=== PATIENT | female | born 1990 | race Caucasian/White ===

== ENCOUNTER → 2018-03-03 14:58 | Outpatient (CLI) | payer OTHER, SELFPAY ==
[2018-03-03 21:21] LABS: Chlamydia Trachomatis by PCR Negative (Negative); Neisserai gonorrhoeae by PCR Negative (Negative); Probe Check PASS; Sample Adequacy Control PASS; Specimen Processing Control PASS
[2018-03-08 11:04] LABS: HPV Reflexed? NOT INDICATED
== END ==
PROVIDERS: Visit Provider Obstetrics & Gynecology
DX: Z12.4 Encounter for screening for malignant neoplasm of cervix (principal); Z34.90 Encounter for supervision of normal pregnancy, unspecified, unspecified trimester
CPT/HCPCS: 87086; 87491; 87591; 88175; G0145

== ENCOUNTER → 2018-04-04 13:41 | Outpatient (CLI) | payer OTHER, SELFPAY ==
[2018-04-04 14:33] LABS: Absolute Lymphocyte Count 1.63 X10^3/ul (0.83-4.51); Absolute Neutrophil Count 5.5 X10^3/uL (2.0-7.7); Basophil# 0.01 X10^3/uL; Basophil% 0.1 % (0-1); Eosinophil# 0.05 X10^3/uL; Eosinophils% 0.7 % (0-5); Hematocrit 37.2 % (37-47); Lymphocyte # 1.63 X10^3/ul (4.0); Lymphocyte % 21.4 % (19-41); Mean Corp Hgb Conc 34.9 g/gl (32-36); Mean Corpuscular Hgb 29.9 pg (27.0-32.0); Mean Corpuscular Volume 85.5 fL (81-99); Mean Platelet Vol. 9.7 fl (6.2-12.0); Monocyte# 0.44 X10^3/uL; Monocyte% 5.8 % (0-10); Neutrophil # 5.47 X10^3/uL (2.7-7.7); Neutrophil % 71.9 % (47-70); Platelet Count 169 K/mm3 (150-450); RBC Distribution Width CV 12.8 % (11.6-14.6); RBC Distribution Width SD 40.4 fl (35.1-43.9); Red Blood Count 4.35 M/mm3 (4.2-5.4); White Blood Count 7.6 K/mm3 (4.4-11.0)
[2018-04-04 14:34] LABS: POSITIVE COUNT NO; POSITIVE DIFFERENTIAL NO; POSITIVE MORPHOLOGY NO
[2018-04-04 14:54] LABS: Free T3 2.8 pg/mL (2.18-3.98); T4 Free Direct 1.24 ng/dL (0.76-1.46); Thyroid Stim Hormone (TSH) 0.69 uIU/mL (0.358-3.74)
[2018-04-04 15:32] LABS: HIV - WCH Non-Reactive (Nonreactive); Rubella IgG 77.4 IU/mL
[2018-04-05 13:36] LABS: HEPATITIS B SURFACE AG Negative (Negative)
[2018-04-07 05:27] LABS: Rapid Plasmin Reagin (RPR) NONREACTIVE (NONREACTIVE)
== END ==
LOC: LAB 13:43
PROVIDERS: Family Provider Student in an Organized Health Care Education/Training Program; PCP Student in an Organized Health Care Education/Training Program; Referring Provider Obstetrics & Gynecology; Visit Provider Obstetrics & Gynecology
DX: O99.280 Endocrine, nutritional and metabolic diseases complicating pregnancy, unspecified trimester (principal); E03.9 Hypothyroidism, unspecified; Z3A.00 Weeks of gestation of pregnancy not specified
CPT/HCPCS: 36415; 84439; 84443; 84481; 85025; 86592; 86703; 86762; 86850; 86900; 87340

== ENCOUNTER → 2018-07-17 09:25 | Outpatient (CLI) | payer OTHER, SELFPAY ==
[2018-06-27 13:07] VITALS: BMI 29.2
[2018-07-17 10:16] LABS: Absolute Lymphocyte Count 1.46 X10^3/ul (0.83-4.51); Absolute Neutrophil Count 6.1 X10^3/uL (2.0-7.7); Basophil# 0.01 X10^3/uL; Basophil% 0.1 % (0-1); Eosinophil# 0.07 X10^3/uL; Eosinophils% 0.8 % (0-5); Hematocrit 33.7 % (37-47); Hemoglobin 11.1 g/dl (12.0-15.0); Lymphocyte # 1.46 X10^3/ul (4.0); Lymphocyte % 17.6 % (19-41); Mean Corp Hgb Conc 32.9 g/gl (32-36); Mean Corpuscular Hgb 28.2 pg (27.0-32.0); Mean Corpuscular Volume 85.5 fL (81-99); Mean Platelet Vol. 9.7 fl (6.2-12.0); Monocyte# 0.54 X10^3/uL; Monocyte% 6.5 % (0-10); Neutrophil # 6.13 X10^3/uL (2.7-7.7); Platelet Count 197 K/mm3 (150-450); RBC Distribution Width CV 13.4 % (11.6-14.6); RBC Distribution Width SD 41.3 fl (35.1-43.9); Red Blood Count 3.94 M/mm3 (4.2-5.4); White Blood Count 8.3 K/mm3 (4.4-11.0)
[2018-07-17 10:18] LABS: POSITIVE COUNT NO; POSITIVE DIFFERENTIAL NO; POSITIVE MORPHOLOGY NO
[2018-07-17 10:55] LABS: Glucose Challenge Gest 1H 50g 105 mg/dL (70-140)
== END ==
PROVIDERS: Family Provider Student in an Organized Health Care Education/Training Program; PCP Student in an Organized Health Care Education/Training Program; Referring Provider Obstetrics & Gynecology; Visit Provider Obstetrics & Gynecology
DX: Z34.90 Encounter for supervision of normal pregnancy, unspecified, unspecified trimester (principal)
CPT/HCPCS: 36415; 82950; 85025

== ENCOUNTER 2018-09-14 22:15 | Outpatient (CLI) | payer OTHER, SELFPAY ==
[2018-09-11 11:40] VITALS: BMI 31.9
[2018-09-14 22:51] VITALS: BMI 35.1
[2018-09-14 23:59] LABS: Protein:Creat Ratio 1220 mg/g CRE (0-200)
--- NOTE | 2018-09-20 06:58 | OB.TRI.PN_ITS ---
Progress Notes Date of Service: 09/14/18 Progress Note: Patient presented with initial headache at home but resolved while here at triage spontaneously, and initial elevated blood pressure 140s over 80s but all repeats were within normal limits. heart tones 130s moderate variability reactive no decelerations category 1 tracing [place]: Irregular contractions Assessment and plan patient with resolved headache urine protein creatinine ratio sent we will follow-up in the office in the next day to follow blood press ures closely, reviewed pre-clampsia precautions Laboratory Studies: Laboratory Tests 09/14/18 Range/Units 23:20 U Random Total Protein 216.0 H (<11.9) mg/dL Urine Creatinine 177.00 (NO RANGE EST.) mg/dL Protein/Creatinin Ratio 1220 H (0-200) mg/g CRE
== END 2018-09-14 23:30 | disposition home or self-care (01) ==
LOC: WPOUT 22:42 → WP 22:43
PROVIDERS: Family Provider Student in an Organized Health Care Education/Training Program; PCP Student in an Organized Health Care Education/Training Program; Referring Provider Obstetrics & Gynecology; Visit Provider Obstetrics & Gynecology
DX: O26.899 Other specified pregnancy related conditions, unspecified trimester (principal); R51 Headache; R03.0 Elevated blood-pressure reading, without diagnosis of hypertension; Z3A.00 Weeks of gestation of pregnancy not specified
CPT/HCPCS: 59025; 59050; 82570; 84156; 99218; G0378

== ENCOUNTER 2018-09-15 16:35 | Inpatient (IN) | payer OTHER, SELFPAY ==
[2018-09-14 22:51] VITALS: BMI 35.1
[2018-09-15 14:42] VITALS: BMI 35.1
[2018-09-15 15:13] VITALS: BMI 34.7
[2018-09-15 15:47] LABS: Hematocrit 32.7 % (37-47); Hemoglobin 10.4 g/dl (12.0-15.0); Mean Corp Hgb Conc 31.8 g/gl (32-36); Mean Corpuscular Hgb 24.5 pg (27.0-32.0); Mean Corpuscular Volume 77.1 fL (81-99); Mean Platelet Vol. 10.3 fl (6.2-12.0); Platelet Count 151 K/mm3 (150-450); RBC Distribution Width SD 42.7 fl (35.1-43.9); Red Blood Count 4.24 M/mm3 (4.2-5.4); Scan Indicated on CBC? Y/N NO; White Blood Count 9.3 K/mm3 (4.4-11.0)
[2018-09-15 15:50] LABS: Partial Thromboplast Time 25.8 Seconds (24.1-36.2); Prothrombin Time (Protime)PT. 12.6 SECONDS (11.7-14.9)
[2018-09-15 15:59] LABS: Protein, Urine (Random) 264.6 mg/dL (<11.9); Protein:Creat Ratio 948 mg/g CRE (0-200)
[2018-09-15] MEDS: Lactated Ringers 1,000 ML 50 ML IV (16:05)
[2018-09-15 16:06] LABS: AST(SGOT) 91 U/L (15-37); Alanine Aminotransfer ALT/SGPT 93 U/L (13-56); Creatinine, Serum 0.69 mg/dL (0.55-1.02); EST Glomerular Filtration Rate 107 mL/min (>60); Est Glom Filt Rate - Afr Amer 130 mL/min (>60); Estimated Creatinine Clearance 123.54 ml/min; Uric Acid 7.3 mg/dL (2.6-6.0)
[2018-09-15 16:08] VITALS: BP 166/83; PULSE 48
[2018-09-15] MEDS: Acetaminophen/Butalbital/Caffe 1 Tablet 2 TABLET PO ×2 (16:44→21:51)
[2018-09-15] MEDS: Betamethasone/Betamethasone 30 MG/5 ML Vial 12 MG IM (16:44)
[2018-09-15 17:22] VITALS: BP 145/79; PULSE 63
[2018-09-15] MEDS: hydrALAZINE 10 MG Tablet 20 MG PO ×2 (17:22→21:49)
[2018-09-15] MEDS: 0.9% Normal Saline 100 ML IV.SOLN. INTRA-UTER (17:29)
[2018-09-15] MEDS: Magnesium Sulfate 20 GM/500 ML BAG IV (17:34)
[2018-09-15] MEDS: Oxytocin 30 units/NS 500 ml 30 UNITS/500 ML IV.SOLN IV (18:54)
[2018-09-15] MEDS: Sodium Chloride 0.65% 1 SPRAY SPRAY.BTL 2 SPRAY NASAL (18:55)
[2018-09-15 21:10] LABS: Group B Strep DNA By PCR Negative (Negative); Internal Control PASS; Probe Check PASS; Specimen Processing Control PASS
[2018-09-15 21:49] VITALS: BP 131/76; PULSE 70
[2018-09-15] MEDS: proMETHazine 25 MG/ML Syringe 12.5 MG IV (23:50)
[2018-09-16] VITALS (15 sets, daily range): BP systolic 116–143; BP diastolic 67–92; PULSE 65–86; RESP 16–24; TEMP 36.3–37.2; O2SAT 92–99
[2018-09-16 04:02] LABS: Absolute Lymphocyte Count 1.09 X10^3/ul (0.83-4.51); Absolute Neutrophil Count 9.6 X10^3/uL (2.0-7.7); Basophil# 0.01 X10^3/uL; Basophil% 0.1 % (0-1); Hematocrit 35.2 % (37-47); Hemoglobin 11.6 g/dl (12.0-15.0); Lymphocyte # 1.09 X10^3/ul (4.0); Lymphocyte % 9.7 % (19-41); Mean Corpuscular Hgb 24.8 pg (27.0-32.0); Mean Corpuscular Volume 75.2 fL (81-99); Mean Platelet Vol. 10.7 fl (6.2-12.0); Monocyte# 0.43 X10^3/uL; Monocyte% 3.8 % (0-10); Neutrophil # 9.61 X10^3/uL (2.7-7.7); Neutrophil % 85.3 % (47-70); POSITIVE COUNT NO; POSITIVE DIFFERENTIAL NO; POSITIVE MORPHOLOGY NO; Platelet Count 201 K/mm3 (150-450); RBC Distribution Width CV 15.1 % (11.6-14.6); RBC Distribution Width SD 40.8 fl (35.1-43.9); Red Blood Count 4.68 M/mm3 (4.2-5.4); White Blood Count 11.3 K/mm3 (4.4-11.0)
[2018-09-16 04:12] LABS: ALB/GLOB Ratio 0.8 RATIO (0.9-2.4); AST(SGOT) 109 U/L (15-37); Alanine Aminotransfer ALT/SGPT 148 U/L (13-56); Albumin, Serum 2.5 g/dL (3.2-5.0); Alkaline Phosphatase 111 U/L (45-117); Anion Gap 11 (5-15); BUN 13 mg/dL (7-18); BUN/Creat Ratio 17.7 RATIO (10-20); Calcium,Total 7.6 mg/dL (8.5-10.1); Chloride 108 mmol/L (98-107); Creatinine, Serum 0.74 mg/dL (0.55-1.02); EST Glomerular Filtration Rate 100 mL/min (>60); Est Glom Filt Rate - Afr Amer 121 mL/min (>60); Globulin 3.3 g/dL (2.2-4.2); Glucose 113 mg/dL (74-106); Potassium 4.3 mmol/L (3.5-5.1); Protein, Total 5.8 g/dL (6.4-8.2); Sodium Level 139 mmol/L (136-145)
[2018-09-16] MEDS: Magnesium Sulfate 20 GM/500 ML BAG IV ×2 (04:39→15:50)
[2018-09-16] MEDS: hydrALAZINE 10 MG Tablet 20 MG PO (06:33)
[2018-09-16] MEDS: fentaNYL-bupivacaine (epidural) 100 ML BAG EPIDURAL (07:14)
[2018-09-16] MEDS: Oxytocin 30 units/NS 500 ml 30 UNITS/500 ML IV.SOLN 334 UNITS IV (07:42)
[2018-09-16] MEDS: Oxytocin 30 units/NS 500 ml 30 UNITS/500 ML IV.SOLN 167 UNITS IV (08:13)
--- NOTE | 2018-09-16 08:35 | PCM.OPRPT ---
Problem List (1) Pre-eclampsia during in third trimester, antepartum Status: Acute Comment: weekly labs, weekly nst, twice weekly visits (one is bp check) deliver at 37 weeks. preeclampsia education given (2) Supervision of normal Status: Acute Qualifiers: Normal : other normal Trimester: third trimester Qualified Code(s): Z34.83 - Encounter for supervision of other normal , third trimester Comment: PRR JENNIFER 10/14/18 boy Mary Gold Hailey [place] (3) Status: Acute Qualifiers: Weeks of gestation: 35 weeks Qualified Code(s): Z3A.35 - 35 weeks gestation of Comment: Declines genetic, carrier, NT screening. MFM Anatomy scan normal (4) Hypothyroidism (acquired) Status: Acute Comment: check labs q month with PCP(Garth) Vaginal Delivery Vaginal Delivery Maternal Presentation: Medically Indicated Induction iol severe preeclampsia 36 weeks Method of Induction: Pitocin, Hernández Bulb Amniotic Membrane Rupture Type: Artificial Amniotic Fluid Description: Clear Date of Procedure: 09/16/18 Pre-Operative Diagnosis: severe preeclampsia Post-Operative Diagnosis: same Surgery/ Procedure Performed: Spontaneous Vaginal Delivery Type of Anesthesia: Epidural Description of Procedure: Patient began pushing and delivered the head in the ROSIO presentation. The head was delivered atraumatically . The anterior and posterior shoulders delivered without complication followed by the rest of the infant and the was placed on the maternal abdomen. Delayed cord clamping was employed for approximately 60 seconds. Cord was clamped and cut and gentle traction was applied to the cord and the placenta delivered spontaneously immediately following it was noted to be intact with three-vessel cord. The perineum and vagina were inspected and noted to have no laceration. EBL was 300 cc. Patient and tolerated delivery well. Presentation: ROSIO Placental Delivery Description: Spontaneous Placenta Disposition: [facility] Estimated Blood Loss: 300 A gender: Male Episiotomy Description: None Laceration: None Medications given after delivery: IV Pitocin Complications: None
--- NOTE | 2018-09-16 08:38 | HP.PCM_ITS ---
- Problem List (1) Pre-eclampsia during in third trimester, antepartum Status: Acute Comment: weekly labs, weekly nst, twice weekly visits (one is bp check) deliver at 37 weeks. preeclampsia education given (2) Supervision of normal Status: Acute Qualifiers: Normal : other normal Trimester: third trimester Qualified Code(s): Z34.83 - Encounter for supervision of other normal , third trimester Comment: PRR JENNIFER 10/14/18 boy Mary Gold Hailey [place] (3) Status: Acute Qualifiers: Weeks of gestation: 35 weeks Qualified Code(s): Z3A.35 - 35 weeks gestation of Comment: Declines genetic, carrier, NT screening. MFM Anatomy scan normal (4) Hypothyroidism (acquired) Status: Acute Comment: check labs q month with PCP(Garth) History Date of Admission: 09/15/18 Final JENNIFER: 10/14/18 Gestational age: 36 Weeks and 0 Days History of this : This is a 28 year-old, at 35 weeks gestational age presents with severe preeclampsia with bps 160s/110s and elevate dliver enzymes, normal platelets, and headache. Medical History: Medical History (Last Reviewed 09/11/18 @ 11:39 by Vera Gregorio) Anemia D64.9 Headache R51 Hypothyroidism E03.9 Migraine G43.909 Multiple thyroid nodules E04.2 Allergies No Known Allergies Allergy (Verified 09/14/18 22:54) Home Medications: Home Medications levothyroxine 88 mcg capsule 1 tab PO DAILY 06/22/17 vitamin#30 30 mg iron-10 mg iron-folic acid 1 mg-omg3 capsule 1 cap PO DAILY cap 06/27/18 Prednisone 30 mg PO DAILY 09/14/18 blood pressure monitor kit See Dose Instructions .ROUTE .MEDSUPPLY #1 ea 09/15/18 Smoking Status: Former smoker Alcohol: None Number of Fetus(es): 1 Heart Tracin moderate variability reactive no decelerations category I tracing [place]: no regular History Past Pregnancies: Past Pregnancies Pregancy History 5 Elective abortions Hx Para 3 Spontaneous abortions Hx # Term Pregnancies Ectopic pregnancies Hx # Pregnancies Multiple births # of living children Past Pregnancies Del. Date Name GA/Weeks Outcome Route Bth Weight Gen Labor Lgth Anesthesia Del Locatn Provider FOB Unknown 2011 [place] live - full term 40 Female [place] Unknown 2011 Mary 39 live - full term Female [place] Unknown 2016 Sayda 38 live - full term Female [place] Delivery Date: On 03/03/18 @ 11:58 Vera Gregorio Breech Delivery Date: No notes to display Delivery Date: No notes to display Labs: Mom's Microbiology 09/15/18 Unknown Genital vaginal Group B Streptococcus Culture - Pending Mom's Labs & Results 09/15/18 09/15/18 09/15/18 15:20 15:20 15:20 WBC 9.3 RBC 4.24 Hgb 10.4 L Hct 32.7 L MCV 77.1 L MCH 24.5 L MCHC 31.8 L RDW 15.0 H RDW Differential 42.7 Plt Count 151 MPV 10.3 Immature Gran % (Auto) Neut % (Auto) Lymph % (Auto) [place] % (Auto) Eos % (Auto) Baso % (Auto) Absolute Neuts (auto) Absolute Lymphs (auto) Total Counted PT 12.6 INR 1.0 APTT 25.8 Sodium Potassium Chloride Carbon Dioxide Anion Gap BUN Creatinine Estim Creat Clear Calc Est GFR (MDRD) Af Amer Est GFR (MDRD) Non-Af BUN/Creatinine Ratio Glucose Uric Acid Calcium Total Bilirubin AST ALT Alkaline Phosphatase Total Protein Albumin Globulin Albumin/Globulin Ratio U Random Total Protein 264.6 H Urine Creatinine 279.00 Protein/Creatinin Ratio 948 H Group B Strep DNA Specimen Comment Blood Type Antibody Screen 09/15/18 09/15/18 09/15/18 15:20 15:20 19:40 WBC RBC Hgb Hct MCV MCH MCHC RDW RDW Differential Plt Count MPV Immature Gran % (Auto) Neut % (Auto) Lymph % (Auto) [place] % (Auto) Eos % (Auto) Baso % (Auto) Absolute Neuts (auto) Absolute Lymphs (auto) Total Counted PT INR APTT Sodium Potassium Chloride Carbon Dioxide Anion Gap BUN Creatinine 0.69 Estim Creat Clear Calc 123.54 Est GFR (MDRD) Af Amer 130 Est GFR (MDRD) Non-Af 107 BUN/Creatinine Ratio Glucose Uric Acid 7.3 H Calcium Total Bilirubin AST 91 H ALT 93 H Alkaline Phosphatase Total Protein Albumin Globulin Albumin/Globulin Ratio U Random Total Protein Urine Creatinine Protein/Creatinin Ratio Group B Strep DNA Negative Specimen Comment Not Reportable Blood Type A POSITIVE Antibody Screen NEGATIVE 09/16/18 09/16/18 03:45 03:45 WBC 11.3 H RBC 4.68 Hgb 11.6 L Hct 35.2 L MCV 75.2 L MCH 24.8 L MCHC 33.0 RDW 15.1 H RDW Differential 40.8 Plt Count 201 MPV 10.7 Immature Gran % (Auto) 1.100 H Neut % (Auto) 85.3 H Lymph % (Auto) 9.7 L [place] % (Auto) 3.8 Eos % (Auto) 0.0 Baso % (Auto) 0.1 Absolute Neuts (auto) 9.6 H Absolute Lymphs (auto) 1.09 Total Counted Not Reportable PT INR APTT Sodium 139 Potassium 4.3 Chloride 108 H Carbon Dioxide 20.0 L Anion Gap 11 BUN 13 Creatinine 0.74 Estim Creat Clear Calc 115.20 Est GFR (MDRD) Af Amer 121 Est GFR (MDRD) Non-Af 100 BUN/Creatinine Ratio 17.7 Glucose 113 H Uric Acid Calcium 7.6 L Total Bilirubin 0.40 AST 109 H ALT 148 H Alkaline Phosphatase 111 Total Protein 5.8 L Albumin 2.5 L Globulin 3.3 Albumin/Globulin Ratio 0.8 L U Random Total Protein Urine Creatinine Protein/Creatinin Ratio Group B Strep DNA Specimen Comment Blood Type Antibody Screen Course Did the patient receive Yes care? Labs Blood Type: A RH: POSITIVE RPR/VDRL/Syphilis Nonreactive Rubella status Immune HbSAg Negative Date Done: 04/04/18 Chlamydia Negative Gonorrhea Negative HIV/AIDS Non-Reactive Group B Strep: Not Done Current Obstetrical History Gestational Diabetes No Incompetent Cervix No Infertility No IUGR No Macrosomia No Hypertension/Pre-eclampsia Yes Placenta Previa/Abruption No PTL/PROM No Uterine anomaly No Oligohydramnios No Polyhydramnios No Multiple gestation No Past Medical History Asthma Yes Diabetes No Hypertension No Heart disease No Mitral valve prolapse No Neurologic/Seizure disorder/ Yes: migraines Migraines Kidney disease No Liver disease No Varicosities No Clotting disorders/Hx of DVT No Thyroid Dysfunction Yes: hypothyroid Other medical diseases No Psychiatric disorders No Major trauma No Abnormal PAP smear No Sleep apnea No Mammogram in the last 2 years No Enter DETAILS of medical anemia history Social History Marital Status: Alleged father [place] Smoking Yes Smoking Status Former smoker Expected Infant Delivery Method: Spontaneous Vaginal Review of Systems Constitutional: Denies: Fever, Malaise Eyes: Denies: Blurred vision, Vision Change HEENT: Reports: Head Aches. Denies: Visual Changes Cardiovascular: Denies: Chest Pain, Palpitations Respiratory: Denies: Cough, Shortness of Breath, Wheezing Gastrointestinal: Denies: Abdominal Pain, Diarrhea, Nausea, Vomiting Genitourinary: Denies: Dysuria, Hematuria Musculoskeletal: Denies: Joint Pain, Muscle pain Skin: Denies: Lesions, Rash Neurological: Reports: Headaches. Denies: Blurred vision, Focal weakness Psychiatric: Denies: Anxiety, Depression Endocrine: Denies: Heat/ Cold Intolerance Hematologic/ Lymphatic: Denies: Easy Bruising, Easy Bleeding Physical Exam Vitals: Vital Signs Pulse BP 81 143/92 H 09/16/18 06:33 09/16/18 06:33 General: Alert, Cooperative, No apparent distress HEENT: Atraumatic, Normocephalic. Negative for: Thyromegaly, Lymphadenopathy Cardiovascular: Regular rate Lungs: Normal air movement Abdomen: Soft, Non Tender, Gravid Neurological: Deep Tendon Reflexes 2+/4 and Symmetrical, Neuro grossly intact. Negative for: Clonus [employer]IST[employer]: Normal external genitalia. Negative for: Vulvar lesions Estimated gestational size: Appropriate for gestational size Presentation: Cephalic Cervix Dilation (cm): 1 Station: -3 Effacement (%): 50 Assessment/Plan All Active Problems (Last Reviewed 09/11/18 @ 11:39 by Vera Gregorio) Pre-eclampsia during in third trimester, antepartum (Acute) Supervision of normal (Acute) (Acute) Hypothyroidism (acquired) (Acute) Proteinuria affecting (Resolved) Thyroid dysfunction (Resolved) This is a 28 year-old, at 35 weeks gestational age presents with severe preeclampsia Patient presents IOL, plan management for , pitocin/AROM after FB comes out. Pain management: consideringepidural. GBS negative DNA but based on risk factors, will treat Management of any complications: s/p hydralazine, magnesium and given maintenance hydralazine. headache improved with fioricet I have reviewed the [facility] and made any clinically relevant updates.
[2018-09-16] MEDS: Acetaminophen 500 MG Tablet 1000 MG PO (17:53)
--- NOTE | 2018-09-16 22:16 | NURSING ---
During hourly mag checks, pt was sleeping and o2 saturation dropped to 92%RA. Pt was then encouraged to take deep breaths allowing o2 sats to rise to 96% but then returned to 92% after deep breathing stopped. A moist cough was also heard during this assessment. All other VS WNL, lung sounds clear and equal bilaterally. 2l o2 applied via nasal canula, pulse ox then 96%. Will notify
[2018-09-17] VITALS (13 sets, daily range): BP systolic 119–139; BP diastolic 65–83; PULSE 57–85; RESP 16–18; TEMP 36.2–37.3; O2SAT 96–98
[2018-09-17] MEDS: Caffeine 200 MG Tablet PO (00:21)
[2018-09-17] MEDS: Metoclopramide 10 MG/2 ML Vial 5 MG IV ×2 (00:22→06:54)
--- NOTE | 2018-09-17 00:57 | NURSING ---
Addendum entered by Grace Michel 09/17/18 01:00: con't... o2 sats 92% on RA, so 2L nasal cannula applied and then sats were 98%, respirations 24. Also informed that IV mag sulfate had been running at 2g/hr instead of 1g/hr, so at 0 magnesium rate was changed to 1 g/hr. New orders given to give caffeine 200mg PO x1 and Reglan 5mg IVP for CAMPOS and to continue to monitor, ok to call her with any issues, also ok with dose change. Original Note: At 0005, [facility] was informed of pt's c/o severe CAMPOS, rating 7/10,
[2018-09-17] MEDS: Acetaminophen 500 MG Tablet 1000 MG PO (04:45)
[2018-09-17 05:44] LABS: Hematocrit 30.4 % (37-47); Hemoglobin 9.7 g/dl (12.0-15.0); Mean Corp Hgb Conc 31.9 g/gl (32-36); Mean Corpuscular Hgb 24.6 pg (27.0-32.0); Mean Platelet Vol. 9.9 fl (6.2-12.0); Platelet Count 167 K/mm3 (150-450); RBC Distribution Width CV 15.2 % (11.6-14.6); RBC Distribution Width SD 41.6 fl (35.1-43.9); Red Blood Count 3.95 M/mm3 (4.2-5.4); White Blood Count 7.7 K/mm3 (4.4-11.0)
[2018-09-17 05:46] LABS: Scan Indicated on CBC? Y/N NO
[2018-09-17 06:34] LABS: ALB/GLOB Ratio 0.7 RATIO (0.9-2.4); AST(SGOT) 29 U/L (15-37); Alanine Aminotransfer ALT/SGPT 78 U/L (13-56); Alkaline Phosphatase 82 U/L (45-117); Anion Gap 9 (5-15); BUN 13 mg/dL (7-18); Calcium,Total 6.4 mg/dL (8.5-10.1); Chloride 109 mmol/L (98-107); Creatinine, Serum 0.81 mg/dL (0.55-1.02); EST Glomerular Filtration Rate 89 mL/min (>60); Est Glom Filt Rate - Afr Amer 108 mL/min (>60); Estimated Creatinine Clearance 105.24 ml/min; Globulin 2.7 g/dL (2.2-4.2); Glucose 100 mg/dL (74-106); Potassium 3.5 mmol/L (3.5-5.1); Protein, Total 4.7 g/dL (6.4-8.2); Sodium Level 141 mmol/L (136-145)
[2018-09-17] MEDS: Magnesium Sulfate 20 GM/500 ML BAG IV (06:40)
--- NOTE | 2018-09-17 10:15 | NURSING ---
Discussed with Bev GARCIA the leakage of fluid from epidural site overnight. Eunice GARCIA and Bev GARCIA evaluated at the bedside this AM at 0630. Fluid noted on the towel placed behind the pt overnight was approximately 4 by 5, slighty blood tinged. Pt rates CAMPOS discomfort this AM 06/29, stating she has h/o migrains, and starts in her neck and radiates to head. Denies visual dist., no relief yesterday when pt rested flat. Progressively leaking less fluid and pt is feeling better today. Bev GARCIA stating she spoke with this AM and stating epidural was likely placed superficial and leaking fluid from the epidural medication. 4x4 taped over epidural site. No new leakage over the past 3 hrs. Bev GARCIA stating the plan is to continue monitoring for new drainage or new symptoms.
--- NOTE | 2018-09-17 10:41 | PCM.PN.OB ---
Subjective: Patient relates headache resolved with Reglan. Has hx migraines up to twice weekly outside of - often exacerbated by chemicals or scents. She feels recent headache was c/w prior migraine. She previously was on abortive headache medication outside of as [employer] has stopped working. She cannot recall name of medication. No hx prophylactic migraine medication. Denies vision changes, abdominal pain apart from intermittent cramping. Denies heavy lochia. Male infant is nursing well. Objective: Vital Signs Temp 97.5 F L 09/17/18 09:40 Pulse 79 09/17/18 09:40 Resp 16 09/17/18 09:40 BP 131/77 H 09/17/18 09:40 Pulse Ox 98 09/17/18 09:40 Intake & Output 09/15/18 09/16/18 09/17/18 23:59 23:59 23:59 Intake Total 2014 893 / 893 Output Total 1550 / 1550 1200 / 1200 Balance 465 / 465 -307 / -307 Weight: 103.8 kg Intake: Oral 900 / 900 495 / 495 IV fluid/meds 519 / 519 163 / 163 Other 596 / 596 235 / 235 Output: Urine 1550 / 1550 1200 / 1200 - Physical Exam General: Alert, Oriented x3, Cooperative, No apparent distress HEENT: Atraumatic, Normocephalic Lungs: Clear to auscultation, Normal air movement Cardiovascular: Regular rate, Regular Rhythm, Normal S1, Normal S2 Abdomen: Soft, Non Tender, Non-Distended, - - Fundus firm and nontender, lochia scant Extremities: No edema, No Calf Tenderness Neurological: Deep Tendon Reflexes 2+/4 and Symmetrical, Neuro grossly intact, - - no clonus Psych/Mental Status: Normal Affect, Appropriate, Alert and oriented to time, place, person, mood and affect Vital Signs Temp Pulse Resp BP Pulse Ox 97.5 F L 79 16 131/77 H 98 09/17/18 09:40 09/17/18 09:40 09/17/18 09:40 09/17/18 09:40 09/17/18 09:40 Oxygen Flow Rate (L/min) 2 Oxygen Delivery Method Room Air Weight: 103.8 kg Body Mass Index (BMI) 34.7 Intake and Output for Last 24 Hours 09/15/18 09/16/18 09/17/18 23:59 23:59 23:59 Intake Total 2014 893 / 893 Output Total 1550 / 1550 1200 / 1200 Balance 465 / 465 -307 / -307 Microbiology Past 72 Hours 09/15/18 Unknown Group B Streptococcus Culture - Preliminary Genital vaginal Laboratory Tests Past 24 Hrs 09/17/18 09/17/18 05:20 05:20 WBC 7.7 RBC 3.95 L Hgb 9.7 L Hct 30.4 L MCV 77.0 L MCH 24.6 L MCHC 31.9 L RDW 15.2 H RDW Differential 41.6 Plt Count 167 MPV 9.9 Sodium 141 Potassium 3.5 Chloride 109 H Carbon Dioxide 23.0 Anion Gap 9 BUN 13 Creatinine 0.81 Estim Creat Clear Calc 105.24 Est GFR (MDRD) Af Amer 108 Est GFR (MDRD) Non-Af 89 BUN/Creatinine Ratio 16.0 Glucose 100 Calcium 6.4 L* Total Bilirubin 0.20 AST 29 ALT 78 H Alkaline Phosphatase 82 Total Protein 4.7 L Albumin 2.0 L Globulin 2.7 Albumin/Globulin Ratio 0.7 L Mom's Microbiology 09/15/18 Unknown Genital vaginal Group B Streptococcus Culture - Preliminary Mom's Labs & Results 09/15/18 09/15/18 09/15/18 15:20 15:20 15:20 WBC 9.3 RBC 4.24 Hgb 10.4 L Hct 32.7 L MCV 77.1 L MCH 24.5 L MCHC 31.8 L RDW 15.0 H RDW Differential 42.7 Plt Count 151 MPV 10.3 Immature Gran % (Auto) Neut % (Auto) Lymph % (Auto) [place] % (Auto) Eos % (Auto) Baso % (Auto) Absolute Neuts (auto) Absolute Lymphs (auto) Total Counted PT 12.6 INR 1.0 APTT 25.8 Sodium Potassium Chloride Carbon Dioxide Anion Gap BUN Creatinine Estim Creat Clear Calc Est GFR (MDRD) Af Amer Est GFR (MDRD) Non-Af BUN/Creatinine Ratio Glucose Uric Acid Calcium Total Bilirubin AST ALT Alkaline Phosphatase Total Protein Albumin Globulin Albumin/Globulin Ratio U Random Total Protein 264.6 H Urine Creatinine 279.00 Protein/Creatinin Ratio 948 H Group B Strep DNA Specimen Comment Blood Type Antibody Screen 09/15/18 09/15/18 09/15/18 15:20 15:20 19:40 WBC RBC Hgb Hct MCV MCH MCHC RDW RDW Differential Plt Count MPV Immature Gran % (Auto) Neut % (Auto) Lymph % (Auto) [place] % (Auto) Eos % (Auto) Baso % (Auto) Absolute Neuts (auto) Absolute Lymphs (auto) Total Counted PT INR APTT Sodium Potassium Chloride Carbon Dioxide Anion Gap BUN Creatinine 0.69 Estim Creat Clear Calc 123.54 Est GFR (MDRD) Af Amer 130 Est GFR (MDRD) Non-Af 107 BUN/Creatinine Ratio Glucose Uric Acid 7.3 H Calcium Total Bilirubin AST 91 H ALT 93 H Alkaline Phosphatase Total Protein Albumin Globulin Albumin/Globulin Ratio U Random Total Protein Urine Creatinine Protein/Creatinin Ratio Group B Strep DNA Negative Specimen Comment Not Reportable Blood Type A POSITIVE Antibody Screen NEGATIVE 09/16/18 09/16/18 09/17/18 03:45 03:45 05:20 WBC 11.3 H 7.7 RBC 4.68 3.95 L Hgb 11.6 L 9.7 L Hct 35.2 L 30.4 L MCV 75.2 L 77.0 L MCH 24.8 L 24.6 L MCHC 33.0 31.9 L RDW 15.1 H 15.2 H RDW Differential 40.8 41.6 Plt Count 201 167 MPV 10.7 9.9 Immature Gran % (Auto) 1.100 H Neut % (Auto) 85.3 H Lymph % (Auto) 9.7 L [place] % (Auto) 3.8 Eos % (Auto) 0.0 Baso % (Auto) 0.1 Absolute Neuts (auto) 9.6 H Absolute Lymphs (auto) 1.09 Total Counted Not Reportable PT INR APTT Sodium 139 Potassium 4.3 Chloride 108 H Carbon Dioxide 20.0 L Anion Gap 11 BUN 13 Creatinine 0.74 Estim Creat Clear Calc 115.20 Est GFR (MDRD) Af Amer 121 Est GFR (MDRD) Non-Af 100 BUN/Creatinine Ratio 17.7 Glucose 113 H Uric Acid Calcium 7.6 L Total Bilirubin 0.40 AST 109 H ALT 148 H Alkaline Phosphatase 111 Total Protein 5.8 L Albumin 2.5 L Globulin 3.3 Albumin/Globulin Ratio 0.8 L U Random Total Protein Urine Creatinine Protein/Creatinin Ratio Group B Strep DNA Specimen Comment Blood Type Antibody Screen 09/17/18 05:20 WBC RBC Hgb Hct MCV MCH MCHC RDW RDW Differential Plt Count MPV Immature Gran % (Auto) Neut % (Auto) Lymph % (Auto) [place] % (Auto) Eos % (Auto) Baso % (Auto) Absolute Neuts (auto) Absolute Lymphs (auto) Total Counted PT INR APTT Sodium 141 Potassium 3.5 Chloride 109 H Carbon Dioxide 23.0 Anion Gap 9 BUN 13 Creatinine 0.81 Estim Creat Clear Calc 105.24 Est GFR (MDRD) Af Amer 108 Est GFR (MDRD) Non-Af 89 BUN/Creatinine Ratio 16.0 Glucose 100 Uric Acid Calcium 6.4 L* Total Bilirubin 0.20 AST 29 ALT 78 H Alkaline Phosphatase 82 Total Protein 4.7 L Albumin 2.0 L Globulin 2.7 Albumin/Globulin Ratio 0.7 L U Random Total Protein Urine Creatinine Protein/Creatinin Ratio Group B Strep DNA Specimen Comment Blood Type Antibody Screen Course Did the patient receive Yes care? Labs Blood Type: A RH: POSITIVE RPR/VDRL/Syphilis Nonreactive Rubella status Immune HbSAg Negative Date Done: 04/04/18 Chlamydia Negative Gonorrhea Negative HIV/AIDS Non-Reactive Group B Strep: Not Done Current Obstetrical History Gestational Diabetes No Incompetent Cervix No Infertility No IUGR No Macrosomia No Hypertension/Pre-eclampsia Yes Placenta Previa/Abruption No PTL/PROM No Uterine anomaly No Oligohydramnios No Polyhydramnios No Multiple gestation No Past Medical History Asthma Yes Diabetes No Hypertension No Heart disease No Mitral valve prolapse No Neurologic/Seizure disorder/ Yes: migraines Migraines Kidney disease No Liver disease No Varicosities No Clotting disorders/Hx of DVT No Thyroid Dysfunction Yes: hypothyroid Other medical diseases No Psychiatric disorders No Major trauma No Abnormal PAP smear No Sleep apnea No Mammogram in the last 2 years No Enter DETAILS of medical anemia history Social History Marital Status: Alleged father [place] Hx Smoking Yes Smoking Status Former smoker Medical Necessity - Tobacco Use Smoking Status: Former smoker Assessment/Plan All Active Problems (Last Reviewed 09/11/18 @ 11:39 by Vera Gregorio) Pre-eclampsia during in third trimester, antepartum (Acute) Supervision of normal (Acute) (Acute) Hypothyroidism (acquired) (Acute) Proteinuria affecting (Resolved) Thyroid dysfunction (Resolved) 28yo PPD#1 s/p on magnesium for preeclampsia with severe features. -Rh positive, Rubella immune -No si/sx worsening preeclampsia and BPs wnl, abnormal LFTs down trending, adequate urine output on low level magnesium. Will discontinue. -hx migraine headache - will order Triptan prn migraine and continue to monitor. Very low levels excreted in breastmillk with poor oral bioavailability in infants (LactMed) - -Routine care
--- NOTE | 2018-09-17 11:17 | NURSING ---
rounded on pt. Orders recieved to discontinued to magnesium sulfate.
[2018-09-17] MEDS: 0.9% NaCl Peripheral Flush Adult/Peds IV (16:00)
--- NOTE | 2018-09-17 18:30 | NURSING ---
Removed 4x4 dressing on epidural site, 1 cm yellow tinged drainage noted on drsg that was placed this am. Pt denies feeling and leakage from site today. No redness, warmth, or fevers noted. Band aid placed on site. Instructed pt to notify nurse of any leakage. Pt verbalized understanding.
--- NOTE | 2018-09-17 22:13 | NURSING ---
Pt c/o the dressing over her epidural site feeling saturated, this nurse removed bandage and applied a 4x4 w/ tape. Light yellow drainage was observed on the pts shirt covering the old bandage. Overall surrounding skin is w/out redness or edema. Pt denies any other issues.
[2018-09-18 03:00] VITALS: BP 124/79; PULSE 56; RESP 16; TEMP 36.6; O2SAT 96
--- NOTE | 2018-09-18 07:35 | PCM.PN.OB ---
Subjective: No complaints pain controlled no CP SOB N V ambulating well tolerating po lochia moderate, going well. States feeling much improved. Denies headache, vision changes, edema. Anxious to go home today BPs all WNL. Liver enzymes trending down. - Physical Exam General: Alert, Oriented x3 Abdomen: Soft, Non Tender, - - FF below U Vital Signs Temp Pulse Resp BP Pulse Ox 97.9 F 56 L 16 124/79 H 96 09/18/18 03:00 09/18/18 03:00 09/18/18 03:00 09/18/18 03:00 09/18/18 03:00 Oxygen Flow Rate (L/min) 2 Oxygen Delivery Method Room Air Weight: 228 lb 13.437 oz Body Mass Index (BMI) 34.7 Intake and Output for Last 24 Hours 09/16/18 09/17/18 09/18/18 23:59 23:59 23:59 Intake Total 2014 963 / 963 Output Total 1550 / 1550 1400 / 1400 Balance 465 / 465 -437 / -437 Microbiology Past 72 Hours 09/15/18 Unknown Group B Streptococcus Culture - Preliminary Genital vaginal Medical Necessity - Tobacco Use Smoking Status: Former smoker Assessment/Plan All Active Problems (Last Reviewed 09/11/18 @ 11:39 by Vera Gregorio) Pre-eclampsia during in third trimester, antepartum (Acute) Supervision of normal (Acute) (Acute) Hypothyroidism (acquired) (Acute) Proteinuria affecting (Resolved) Thyroid dysfunction (Resolved) s/p PPD # 2 1. routine post delivery care 2. breast feeding- support given 3. rh positive 4. rubella immune 5. Will need BP check in office 1 week and 2 week pp visit 5. Plan home today
[2018-09-18 07:50] VITALS: BP 129/80; PULSE 58; RESP 18; TEMP 36.4; O2SAT 98
--- NOTE | 2018-09-18 08:16 | PCM.DCVAG ---
Additional Instructions: If you experience any of the following, contact your healthcare provider. Bleeding that soaks a pad every hour for 2 hours Fever 100.4 or higher Unrelieved incision or abdominal pain Swelling, redness, discharge or bleeding from your incision or episiotomy site Your incision begins to separate Problems urinating (including inability to urinate or burning while urinating). Visual changes Severe headache Flu-like symptoms Pain or redness in one of both of your breasts Pain, warmth, tenderness or swelling in your legs, especially the calf area Frequent nausea and vomiting Symptoms of depression or anxiety If you experience any of the following, call 911 or go to the nearest Emergency Room. Chest pain Problems breathing Seizure activity Partial or complete paralysis of a body part, slurred speech, weakness or drooping of the face, or a sudden inability to walk or hold your balance Allergies/Adverse Reactions: Allergies No Known Allergies Allergy (Verified 09/14/18 22:54) Medications to take at Discharge levothyroxine 88 mcg capsule 1 tab PO DAILY 06/22/17 vitamin#30 30 mg iron-10 mg iron-folic acid 1 mg-omg3 capsule 1 cap PO DAILY cap 06/27/18 Prednisone 30 mg PO DAILY 09/14/18 blood pressure monitor kit See Dose Instructions .ROUTE .MEDSUPPLY #1 ea 09/15/18 Primary Care Physician: Nathaniel Liang DO [Primary Care Provider] - Test Results: Test results from this visit will be discussed in further detail at your follow-up appointment, if applicable.
--- NOTE | 2018-09-18 08:17 | DCINST_ITS ---
Additional Instructions: If you experience any of the following, contact your healthcare provider. * Bleeding that soaks a pad every hour for 2 hours * Fever 100.4 or higher * Unrelieved incision or abdominal pain * Swelling, redness, discharge or bleeding from your incision or episiotomy site * Your incision begins to separate * Problems urinating (including inability to urinate or burning while urinating). * Visual changes * Severe headache * Flu-like symptoms * Pain or redness in one of both of your breasts * Pain, warmth, tenderness or swelling in your legs, especially the calf area * Frequent nausea and vomiting * Symptoms of depression or anxiety If you experience any of the following, call 911 or go to the nearest Emergency Room. * Chest pain * Problems breathing * Seizure activity * Partial or complete paralysis of a body part, slurred speech, weakness or drooping of the face, or a sudden inability to walk or hold your balance Allergies/Adverse Reactions: Allergies No Known Allergies Allergy (Verified 09/14/18 22:54) Medications to take at Discharge levothyroxine 88 mcg capsule 1 tab PO DAILY 06/22/17 vitamin#30 30 mg iron-10 mg iron-folic acid 1 mg-omg3 capsule 1 cap PO DAILY cap 06/27/18 Prednisone 30 mg PO DAILY 09/14/18 blood pressure monitor kit See Dose Instructions .ROUTE .MEDSUPPLY #1 ea 09/15/18 Primary Care Physician: Nathaniel Liang DO [Primary Care Provider] - Test Results: Test results from this visit will be discussed in further detail at your follow- up appointment, if applicable.
[2018-09-18 11:25] VITALS: BP 145/85; PULSE 58; RESP 16; TEMP 36.7; O2SAT 98
--- NOTE | 2018-09-18 12:55 | NURSING ---
Addendum entered by Katia Lea 09/18/18 13:08: pt packing and preparing for discharge. Baby in car seat. Bands verified and scanned before removing Original Note: pt preparing for discharge
--- NOTE | 2018-09-18 12:57 | NURSING ---
This psychiatric nursing assistant reviewed the documentation completed by Hyun Lea and it is complete. Also, this instructor reported the elevated bp noted to the primary RN, Raegan Burrell.
--- NOTE | 2018-09-22 17:27 | NURSING ---
States things going well now but had leaking fluid from epidural site while here and felt no one was really able to tell her how long that would be there. But it has resolved now.
== END 2018-09-18 12:55 | disposition home or self-care (01) | DRG 807 ==
LOC: WPOUT 16:38 → WP 09-16 07:40
PROVIDERS: Nurse Practitioner Women's Health; Admitting Provider Obstetrics & Gynecology; Family Provider Student in an Organized Health Care Education/Training Program; PCP Student in an Organized Health Care Education/Training Program; Referring Provider Obstetrics & Gynecology; Visit Provider Obstetrics & Gynecology
DX: O14.14 Severe pre-eclampsia complicating childbirth (principal); O99.284 Endocrine, nutritional and metabolic diseases complicating childbirth; E03.9 Hypothyroidism, unspecified; O99.02 Anemia complicating childbirth; J45.909 Unspecified asthma, uncomplicated; Z79.899 Other long term (current) drug therapy; Z87.891 Personal history of nicotine dependence; Z3A.36 36 weeks gestation of pregnancy; Z37.0 Single live birth
CPT/HCPCS: 36415; 59025; 59050; 80053; 82565; 82570; 84156; 84450; 84460; 84550; 85025; 85027; 85610; 85730; 86850; 86900; 87081; 87653; 96372; 99218; J7120; A4216; G0378; J0290; J0702

== ENCOUNTER → 2018-09-21 10:31 | Outpatient (CLI) | payer OTHER, SELFPAY ==
[2018-09-21 10:04] VITALS: BMI 34.7
[2018-09-21 12:20] LABS: Absolute Lymphocyte Count 1.58 X10^3/ul (0.83-4.51); Absolute Neutrophil Count 5.2 X10^3/uL (2.0-7.7); Basophil# 0.02 X10^3/uL; Basophil% 0.3 % (0-1); Eosinophil# 0.12 X10^3/uL; Eosinophils% 1.6 % (0-5); Hematocrit 32.7 % (37-47); Hemoglobin 10.2 g/dl (12.0-15.0); Lymphocyte # 1.58 X10^3/ul (4.0); Lymphocyte % 20.9 % (19-41); Mean Corp Hgb Conc 31.2 g/gl (32-36); Mean Corpuscular Hgb 24.5 pg (27.0-32.0); Mean Corpuscular Volume 78.4 fL (81-99); Mean Platelet Vol. 10.7 fl (6.2-12.0); Monocyte# 0.57 X10^3/uL; Monocyte% 7.5 % (0-10); Neutrophil # 5.21 X10^3/uL (2.7-7.7); Neutrophil % 68.9 % (47-70); Platelet Count 212 K/mm3 (150-450); RBC Distribution Width CV 15.7 % (11.6-14.6); RBC Distribution Width SD 43.5 fl (35.1-43.9); Red Blood Count 4.17 M/mm3 (4.2-5.4); White Blood Count 7.6 K/mm3 (4.4-11.0)
[2018-09-21 12:30] LABS: POSITIVE COUNT NO; POSITIVE DIFFERENTIAL NO; POSITIVE MORPHOLOGY NO
[2018-09-21 12:38] LABS: ALB/GLOB Ratio 0.7 RATIO (0.9-2.4); AST(SGOT) 30 U/L (15-37); Alanine Aminotransfer ALT/SGPT 75 U/L (13-56); Albumin, Serum 2.7 g/dL (3.2-5.0); Alkaline Phosphatase 87 U/L (45-117); Anion Gap 7 (5-15); BUN 12 mg/dL (7-18); BUN/Creat Ratio 15.9 RATIO (10-20); Calcium,Total 9.3 mg/dL (8.5-10.1); Chloride 105 mmol/L (98-107); Creatinine, Serum 0.75 mg/dL (0.55-1.02); EST Glomerular Filtration Rate 97 mL/min (>60); Est Glom Filt Rate - Afr Amer 118 mL/min (>60); Globulin 3.7 g/dL (2.2-4.2); Glucose 73 mg/dL (74-106); Potassium 4.4 mmol/L (3.5-5.1); Protein, Total 6.4 g/dL (6.4-8.2); Sodium Level 139 mmol/L (136-145)
== END ==
PROVIDERS: Family Provider Student in an Organized Health Care Education/Training Program; PCP Student in an Organized Health Care Education/Training Program; Referring Provider Nurse Practitioner Women's Health; Visit Provider Nurse Practitioner Women's Health
DX: O14.93 Unspecified pre-eclampsia, third trimester (principal); Z3A.00 Weeks of gestation of pregnancy not specified
CPT/HCPCS: 36415; 80053; 85025

== ENCOUNTER 2018-11-20 18:50 | Outpatient (CLI) | payer OTHER, SELFPAY ==
[2018-11-03 10:36] VITALS: BMI 30.5
== END 2018-11-20 19:50 | disposition home or self-care (01) ==
LOC: WP 19:29 → WPOUT 19:29 → WP 19:30
PROVIDERS: Family Provider Student in an Organized Health Care Education/Training Program; PCP Student in an Organized Health Care Education/Training Program; Referring Provider Obstetrics & Gynecology; Visit Provider Obstetrics & Gynecology
DX: Z39.1 Encounter for care and examination of lactating mother (principal)
CPT/HCPCS: 96152

== ENCOUNTER 2018-11-27 08:25 | Outpatient (CLI) | payer OTHER, SELFPAY ==
[2018-11-03 10:36] VITALS: BMI 30.5
== END 2018-11-27 08:50 | disposition home or self-care (01) ==
LOC: WPOUT 08:29 → WP 08:30
PROVIDERS: Family Provider Student in an Organized Health Care Education/Training Program; PCP Student in an Organized Health Care Education/Training Program; Referring Provider Obstetrics & Gynecology; Visit Provider Obstetrics & Gynecology
DX: N64.4 Mastodynia (principal)
CPT/HCPCS: 96152

== ENCOUNTER → 2019-08-10 13:35 | Outpatient (CLI) | payer OTHER, SELFPAY ==
[2019-07-03 09:41] VITALS: BMI 30.5
--- NOTE | 2019-08-10 13:36 | US_ITS ---
HISTORY: Previous right ovarian cyst. Tests done at outside institution. 58 images. Endovaginal imaging only. Findings: Uterus is retroflexed. The endometrial stripe is heterogeneous at 8 mm. There is some echogenic material within the endometrial canal, likely representing calcifications or scar tissue. Myometrium is homogeneously vascular. No large masses or fluid collections. The uterus measures 7.3 x 4.5 x 5.6 cm. The left ovary measures 2.8 x 1.9 cm. By 1.8 cm. Within the left ovary there is a hypoechoic structure with well-defined margins and increased transmission measuring 1.4 x 1.3 x 1.3 cm, consistent with a follicle. Color and pulse wave Doppler imaging over left ovarian parenchyma demonstrate arterial flow. The right ovary measures 4 x 3.1 x 5.1 cm. Within the right ovary there is a bilobed septated cystic structure measuring 4.7 x 2.5 cm. The septation between the 2 cysts is hypervascular. Color Doppler imaging demonstrates flow in the right ovarian parenchyma compressed by the cyst. Pulse-wave Doppler demonstrates arterial flow. Within one of the septation cysts there is a more solid-appearing structure measuring 1.4 x 1.1 x 1 cm. This more solid structure may have flow peripherally. US/Transvaginal Non- IMPRESSION: Complex right ovarian septated cystic mass. In a 29-year-old female this likely is follicular related. It could represent neoplasia. Follow-up imaging in 6-12 weeks is suggested for assessment of possible resolution versus growth. Heterogeneous endometrial canal with some echogenic non-shadowing structures within it. These are of unknown etiology. These could represent calcifications, or fibrous tissue. at 0614 Reported and signed by: Giovanni Carter MD Electronically Signed: Giovanni Carter MD at 6:13 EST Tel , Service support ,
--- NOTE | 2019-08-10 13:36 | US_ITS ---
HISTORY: Previous right ovarian cyst. Tests done at outside institution. 58 images. Endovaginal imaging only. Findings: Uterus is retroflexed. The endometrial stripe is heterogeneous at 8 mm. There is some echogenic material within the endometrial canal, likely representing calcifications or scar tissue. Myometrium is homogeneously vascular. No large masses or fluid collections. The uterus measures 7.3 x 4.5 x 5.6 cm. The left ovary measures 2.8 x 1.9 cm. By 1.8 cm. Within the left ovary there is a hypoechoic structure with well-defined margins and increased transmission measuring 1.4 x 1.3 x 1.3 cm, consistent with a follicle. Color and pulse wave Doppler imaging over left ovarian parenchyma demonstrate arterial flow. The right ovary measures 4 x 3.1 x 5.1 cm. Within the right ovary there is a bilobed septated cystic structure measuring 4.7 x 2.5 cm. The septation between the 2 cysts is hypervascular. Color Doppler imaging demonstrates flow in the right ovarian parenchyma compressed by the cyst. Pulse-wave Doppler demonstrates arterial flow. Within one of the septation cysts there is a more solid-appearing structure measuring 1.4 x 1.1 x 1 cm. This more solid structure may have flow peripherally. US/Pelvic (Non ) IMPRESSION: Complex right ovarian septated cystic mass. In a 29-year-old female this likely is follicular related. It could represent neoplasia. Follow-up imaging in 6-12 weeks is suggested for assessment of possible resolution versus growth. Heterogeneous endometrial canal with some echogenic non-shadowing structures within it. These are of unknown etiology. These could represent calcifications, or fibrous tissue. at 0614 Reported and signed by: Giovanni Carter MD Electronically Signed: Giovanni Carter MD at 6:13 EST Tel , Service support ,
== END ==
PROVIDERS: Family Provider Student in an Organized Health Care Education/Training Program; PCP Student in an Organized Health Care Education/Training Program; Referring Provider Nurse Practitioner Women's Health; Visit Provider Nurse Practitioner Women's Health
DX: N83.201 Unspecified ovarian cyst, right side (principal)
CPT/HCPCS: 76830; 76856; 93976

== ENCOUNTER → 2019-09-14 13:59 | Outpatient (CLI) | payer OTHER, SELFPAY ==
[2019-07-03 09:41] VITALS: BMI 30.5
--- NOTE | 2019-09-14 14:02 | US_ITS ---
STUDY: ULTRASOUND OF THE FEMALE PELVIS - COMPLETE REASON FOR EXAM: Female, 29 years old. RT OV CYST LMP: September 05, 2019. TECHNIQUE: Transabdominal and Transvaginal TECHNICAL QUALITY: Adequate. COMPARISON: Comparison is made with prior examination dated August 10, 2019. FINDINGS: The uterus is anteverted and is tilted to the right side of the pelvis. The uterus measures 7.7 cm x 5.4 cm x 4.2 cm. Normal uterine cervix. The endometrium measures 11 mm in thickness, and is hyperechoic. Hyperechoic foci are seen within the endometrium. This is unchanged. There is no demonstrated myometrial mass. I.U.D. - The patient does not have an I.U.D. The right ovary is visualized. The right ovary measures 1.7 cm x 2.2 cm x 1.6 cm. There is no right ovarian cyst or ovarian mass. There is no visualized right adnexal mass or complex lesion. There is normal arterial and normal venous vascularity. The left ovary is visualized. The left ovary measures 3.5 cm x 2.1 cm x 2.1 cm. There is a 3.3 cm x 1.7 cm x 2 cm septated cyst in the left ovary. There is no visualized left adnexal mass or complex lesion. There is normal arterial and normal venous vascularity. There is no fluid in the cul-de-sac. The pre void volume of the bladder was 289 ml. Polycystic ovary disease: No. US/Pelvic (Non ) IMPRESSION: 3.3 cm x 1.7 cm x 2 cm septated cyst in the left ovary. Stable appearance of the focal echogenic material within the endometrial canal. Electronically Signed: Sachin Cook, at 15:14 EDT , Service support ,
--- NOTE | 2019-09-14 14:02 | US_ITS ---
STUDY: ULTRASOUND OF THE FEMALE PELVIS - COMPLETE REASON FOR EXAM: Female, 29 years old. RT OV CYST LMP: September 05, 2019. TECHNIQUE: Transabdominal and Transvaginal TECHNICAL QUALITY: Adequate. COMPARISON: Comparison is made with prior examination dated August 10, 2019. FINDINGS: The uterus is anteverted and is tilted to the right side of the pelvis. The uterus measures 7.7 cm x 5.4 cm x 4.2 cm. Normal uterine cervix. The endometrium measures 11 mm in thickness, and is hyperechoic. Hyperechoic foci are seen within the endometrium. This is unchanged. There is no demonstrated myometrial mass. I.U.D. - The patient does not have an I.U.D. The right ovary is visualized. The right ovary measures 1.7 cm x 2.2 cm x 1.6 cm. There is no right ovarian cyst or ovarian mass. There is no visualized right adnexal mass or complex lesion. There is normal arterial and normal venous vascularity. The left ovary is visualized. The left ovary measures 3.5 cm x 2.1 cm x 2.1 cm. There is a 3.3 cm x 1.7 cm x 2 cm septated cyst in the left ovary. There is no visualized left adnexal mass or complex lesion. There is normal arterial and normal venous vascularity. There is no fluid in the cul-de-sac. The pre void volume of the bladder was 289 ml. Polycystic ovary disease: No. US/Transvaginal Non- IMPRESSION: 3.3 cm x 1.7 cm x 2 cm septated cyst in the left ovary. Stable appearance of the focal echogenic material within the endometrial canal. Electronically Signed: Sachin Cook, at 15:14 EDT , Service support ,
== END ==
PROVIDERS: PCP Student in an Organized Health Care Education/Training Program; Referring Provider Nurse Practitioner Women's Health; Visit Provider Nurse Practitioner Women's Health
DX: N83.201 Unspecified ovarian cyst, right side (principal)
CPT/HCPCS: 76830; 76856

== ENCOUNTER → 2020-03-31 | Outpatient (CLI) | payer OTHER, SELFPAY ==
[2020-03-31 14:07] VITALS: BMI 30.5
== END | disposition home or self-care (01) ==
LOC: LABSPEC 17:17
PROVIDERS: PCP Student in an Organized Health Care Education/Training Program; Visit Provider Nurse Practitioner Women's Health
DX: N64.9 Disorder of breast, unspecified (principal)
CPT/HCPCS: 87070; 87205

== ENCOUNTER → 2020-04-10 09:29 | Outpatient (CLI) | payer OTHER, SELFPAY ==
[2020-03-31 14:07] VITALS: BMI 30.5
--- NOTE | 2020-04-10 09:33 | BI_ITS ---
MAMMOGRAPHY - BILATERAL DIAGNOSTIC REASON FOR EXAM: Female, 30 years old. Right breast lump. PERTINENT HISTORY: Non-contributory. TECHNIQUE: Digital bilateral breast berenice (3D mammographic acquisition) in the CC and MLO projections. 2-D mediolateral oblique (MLO) and craniocaudad (CC) views of both breasts were obtained. CAD: Full Field Digital Mammography with Computer Added Detection was performed. COMPARISON: None. Baseline examination. FINDINGS: Breast Composition: There are scattered areas of fibroglandular density. The palpable abnormality corresponds to a 1.1 cm x 1.5 cm well-defined nodule in the deep inferior central portion of the right breast at around the 6 o''clock position. Correlation with ultrasound is recommended. No other significant abnormalities are identified. BI/DIAG MAMM W/CAD, BILAT IMPRESSION: The palpable abnormality corresponds to a 1.1 cm x 1.5 cm well-defined nodule in the deep inferior central portion of the right breast at the 6 o''clock position. Correlation with ultrasound is recommended. ASSESSMENT CATEGORY: BIRADS Category 0: Incomplete. Need additional imaging evaluation. A letter regarding these results will be sent to the patient by the facility within 30 days. Approximately 10% of breast cancers are not detected by mammography. A normal mammogram should not delay biopsy of a clinically suspicious abnormality. Electronically Signed: Sachin Cook, at 10:52 EDT , Service support ,
--- NOTE | 2020-04-10 09:33 | US_ITS ---
STUDY: ULTRASOUND BREAST - RIGHT REASON FOR EXAM: Female, 30 years old. Palpable lump in the right breast. TECHNIQUE: Axial and longitudinal images of the RIGHT breast were performed with a high resolution ultrasound transducer. # OF IMAGES: 37 COMPARISON: Comparison is made with prior mammogram done earlier today. FINDINGS: RIGHT Breast: The palpable abnormality corresponds to a 1.1 cm x 1 cm x 8 cm cystic nodule in the subcutaneous tissue at the 6 o''clock position breast at 7 cm from nipple. A sinus tract is seen to the skin surface. This may represent an infected sebaceous cyst US/Breast Limited Unilateral IMPRESSION: Findings suggestive of an infected sebaceous cyst as described. ASSESSMENT CATEGORY: BIRADS Category 2: Benign. A letter regarding these results will be sent to the patient by the facility within 30 days. Electronically Signed: Sachin Cook, at 13:49 EDT , Service support ,
== END ==
PROVIDERS: PCP Student in an Organized Health Care Education/Training Program; Referring Provider Nurse Practitioner Women's Health; Visit Provider Nurse Practitioner Women's Health
DX: N64.52 Nipple discharge (principal)
CPT/HCPCS: 76642; 77062; 77066; G0279

== ENCOUNTER → 2020-07-11 | Outpatient (CLI) | payer OTHER, SELFPAY ==
[2020-07-11 11:50] VITALS: BMI 31.4
[2020-07-15 14:25] LABS: HPV Reflexed? NOT INDICATED
== END | disposition home or self-care (01) ==
LOC: LABSPEC 12:46
PROVIDERS: PCP Student in an Organized Health Care Education/Training Program; Referring Provider Obstetrics & Gynecology; Visit Provider Obstetrics & Gynecology
DX: Z12.4 Encounter for screening for malignant neoplasm of cervix (principal)
CPT/HCPCS: 88175; G0145

== ENCOUNTER 2020-11-12 05:01 | Emergency (ER) | payer OTHER, SELFPAY ==
[2020-07-11 11:50] VITALS: BMI 31.4
[2020-11-12 05:02] VITALS: BP 129/79; PULSE 65; RESP 18; TEMP 36.8; O2SAT 100; BMI 23.4
[2020-11-12] MEDS: Ketorolac 15 MG/ML Vial IV (05:25)
[2020-11-12] MEDS: DiphenhydrAMINE 50 MG/ML Syringe 25 MG IV (05:26)
[2020-11-12] MEDS: Metoclopramide 10 MG/2 ML Vial 5 MG IV (05:26)
--- NOTE | 2020-11-12 06:04 | EX.ED.DYSGE1 ---
HPI History of Present Illness Chief Complaint: Headache Informant: patient Onset/Context/Timing Onset: Yesterday Context: Gradual Onset Timing: Continuous Current Severity: Moderate Maximum Severity: Moderate Narrative Narrative: 30 year old female presenting with gradual onset headache that began last night. She complains of nausea, with no vomiting. No fever. No recent trauma. She has history of migraines and this headache feels similar. She tried sumatriptan at home with no relief. Denies other complaints. Prior similar symptoms: Yes Recent Illness/Hospitalization: No PFSH PFSH Medical History (Updated 11/12/20 @ 06:[address] Rosaline Benton MD) Anemia Breast lump Headache Hypothyroidism Migraine Multiple thyroid nodules Home Medications cholecalciferol (vitamin D3) 50 mcg (2,000 unit) capsule 50 mcg PO DAILY 03/31/20 [History Last Taken Unknown] levothyroxine 88 mcg capsule 100 mcg PO DAILY cap 04/18/20 [History Last Taken Unknown] fluconazole 150 mg tablet 150 mg PO Q3D 0 Days #2 tablet 09/26/20 [Rx Last Taken Unknown] levonorgestrel-ethinyl estradiol 0.1 mg-20 mcg tablet 1 tab PO DAILY #84 tab 10/20/20 [Rx Last Taken Unknown] sumatriptan succinate 100 mg PO Q2H PRN 11/12/20 [History Last Taken Unknown] Allergy/AdvReac Type Severity Reaction Status Date / Time No Known Allergies Allergy Verified 07/11/20 12:01 Family History Father Diabetes Mother Diabetes Grandmother Thyroid disorder High cholesterol Cancer skin cancer Brother Seizures Grandfather High cholesterol Surgical History History of dilatation and curettage History of wisdom tooth extraction Social History (Updated 07/11/20 @ 13:[address] 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 ROS ROS ED Constitutional Constitutional ED: Denies fever(s) Eyes Eyes: Denies change in vision ENT ENT ED: Denies rhinorrhea or sore throat Cardiovascular Cardiovascular: Denies chest pain or palpitations Respiratory/Chest Respiratory/Chest: Denies cough or dyspnea Gastrointestinal Gastrointestinal: Denies abdominal pain, diarrhea, nausea or vomiting Genitourinary Genitourinary ED: Denies dysuria Musculoskeletal Musculoskeletal: Denies myalgias Integumentary Denies rash Neurologic Neurologic: Reports headache(s); Denies paresthesias or weakness Psychiatric Psychiatric: Denies suicidal thoughts EXAM Physical Exam Const Vital Signs: 11/12/20 05:02 Temperature 98.2 F Temperature Source Oral Pulse Rate 65 Respiratory Rate 18 Blood Pressure 129/79 H Blood Pressure Mean 95 Pulse Ox 100 Oxygen Delivery Method Room Air Positive well nourished and well developed General Appearance ED: well developed HEENT Reports normocephalic and head/scalp atraumatic Eyes PERRL and EOMs intact bilaterally Neck supple Neck Narrative: no meningismus General: Negative for tenderness Chest Wall inspection of chest normal Resp normal respiratory effort and clear to auscultation bilaterally Cardio regular rate and regular rhythm no CVA tenderness Extremity normal to inspection Neuro oriented x3 Sensorium / Orientation: alert Motor Exam: strength 5/5 throughout Psych mental status grossly normal MDM MDM MDM Narrative Medical decision making narrative: Patient was given Reglan, Benadryl, and Toradol with improvement of her symptoms. She is requesting discharge home. Advised to follow up with primary care physician. Advised to return to the ED for worsening complaints. Discharge Plan Triage Chief Complaint: Headache ED Provider: Rosaline Benton Dx/Rx/DC Orders Clinical Impression: Headache Instructions: ED Headache Unspecified Prescriptions: No Action levothyroxine 88 mcg capsule 88 mcg capsule 100 mcg PO DAILY RF: 0 cholecalciferol (vitamin D3) 50 mcg (2,000 unit) capsule 50 mcg PO DAILY RF: 0 sumatriptan succinate 100 mg Tablet 100 mg PO Q2H PRN (Reason: Migraine Headache) RF: 0 fluconazole [Diflucan] 150 mg tablet 150 mg PO Q3D 0 Days Qty: 2 RF: 0 levonorgestrel-ethinyl estrad [Aviane] 0.1-20 mg-mcg tablet 1 tab PO DAILY Qty: 84 RF: 0 Primary Care Provider: Nathaniel Liang Referrals: Nathaniel Liang DO [Primary Care Provider] - Disposition Disposition: Home, self care
[2020-11-12 06:12] VITALS: PULSE 76; RESP 16
== END 2020-11-12 06:13 | disposition home or self-care (01) ==
PROVIDERS: Emergency Provider Emergency Medicine; PCP Student in an Organized Health Care Education/Training Program
DX: R51.9 Headache, unspecified (principal); E04.2 Nontoxic multinodular goiter; E03.9 Hypothyroidism, unspecified; Z79.3 Long term (current) use of hormonal contraceptives; Z79.899 Other long term (current) drug therapy; Z87.891 Personal history of nicotine dependence
CPT/HCPCS: 96374; 96375; 99283; J7030; A4216

== ENCOUNTER 2021-03-26 17:08 | Emergency (ER) | payer OTHER, SELFPAY ==
[2021-03-26 17:09] VITALS: BP 139/83; PULSE 86; RESP 16; TEMP 36.6; O2SAT 100; BMI 26.7
--- NOTE | 2021-03-26 17:18 | EKG12_ITS ---
Test Reason : CP Blood Pressure : / mmHG Vent. Rate : 086 BPM Atrial Rate : 086 BPM P-R Int : 152 ms QRS Dur : 086 ms QT Int : 368 ms P-R-T Axes : 019 036 038 degrees QTc Int : 440 ms Sinus rhythm with Premature atrial complexes Otherwise normal ECG Confirmed by CARLITA COLON, RUDY ([id number]), news editor FAHAD DAVIDSON ([id number]) on 03/30/2021 12:27:48 PM Referred By: EVELYNE/WAGNER Confirmed By:MEGAN ZAZUETA MD
[2021-03-26 17:47] LABS: Absolute Lymphocyte Count 2.54 X10^3/uL (0.83-4.51); Absolute Neutrophil Count 4.4 X10^3/uL (2.0-7.7); Basophil# 0.03 X10^3/uL; Basophil% 0.4 % (0-1); Eosinophil# 0.11 X10^3/uL; Eosinophils% 1.4 % (0-5); Hematocrit 42.4 % (37-47); Hemoglobin 14.5 g/dL (12.0-15.0); Lymphocyte # 2.54 X10^3/ul (0.83-4.51); Lymphocyte % 33.1 % (19-41); Mean Corp Hgb Conc 34.2 g/dL (32-36); Mean Corpuscular Hgb 29.5 pg (27.0-32.0); Mean Corpuscular Volume 86.4 fL (81-99); Mean Platelet Vol. 9.6 fl (6.2-12.0); Monocyte# 0.55 X10^3/uL; Monocyte% 7.2 % (0-10); NRBC Flagged by Analyzer 0 % (0-5); Neutrophil # 4.43 X10^3/uL (2.7-7.7); Neutrophil % 57.6 % (47-70); Platelet Count 244 K/mm3 (150-450); RBC Distribution Width CV 12.4 % (11.6-14.6); RBC Distribution Width SD 39.3 fl (35.1-43.9); Red Blood Count 4.91 M/mm3 (4.2-5.4); White Blood Count 7.7 K/mm3 (4.4-11.0)
--- NOTE | 2021-03-26 17:47 | RAD_ITS ---
STUDY: X-RAY CHEST REASON FOR EXAM: Female, 31 years old. chest pain TECHNIQUE: PA and lateral COMPARISON: None. FINDINGS: The lungs are clear and expanded. There is no demonstrated pleural abnormality. Normal size heart. Normal mediastinum and digna. Normal visualized pulmonary arteries. Normal visualized aortic arch and descending thoracic aorta. Normal visualized thoracic spine. Normal visualized ribs, clavicles, and shoulders. There is no demonstrated abnormality of the visualized soft tissue structures of the upper abdomen. RAD/Chest PA and Lateral IMPRESSION: Normal x-ray examination of the chest. Electronically Signed: Jonathan Chun MD at 18:43 EDT , Service support ,
[2021-03-26 18:12] LABS: Anion Gap 6 (5-15); BUN 9 mg/dL (7-18); BUN/Creat Ratio 9.8 RATIO (10-20); Calcium,Total 9.4 mg/dL (8.5-10.1); Chloride 106 mmol/L (98-107); Creatinine, Serum 0.91 mg/dL (0.55-1.02); EST Glomerular Filtration Rate 77 mL/min (>60); Est Glom Filt Rate - Afr Amer 93 mL/min (>60); Estimated Creatinine Clearance 91.19 ml/min; Glucose 110 mg/dL (74-106); Magnesium 2.1 mg/dL (1.6-2.6); Potassium 3.5 mmol/L (3.5-5.1); Sodium Level 139 mmol/L (136-145); Thyroid Stim Hormone (TSH) 0.34 uIU/mL (0.358-3.74); Troponin-I HS 4 pg/mL (3.0-54.0)
[2021-03-26 18:49] LABS: D-Dimer Quantitative (DVT/PE) 0.46 FEU/ug/m (0.27-0.49)
[2021-03-26 19:00] VITALS: BP 107/75; PULSE 82; RESP 22; O2SAT 98
--- NOTE | 2021-03-26 19:44 | EDS_ITS ---
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 She states for the past few days she will have bouts where she feels her heart is racing for a few seconds and then resolves. She states when this happened she does have report of chest discomfort. She denies any change to her thyroid medication and she denies any past medical history or family history of cardiac dysrhythmia. She also denies any increase stimulants or illicit drug use. However with the abnormal heart sensation she presents for evaluation [facility] Medical History Anemia Breast lump Lanette's disease Headache Hypothyroidism Migraine Multiple thyroid nodules Home Medications cholecalciferol (vitamin D3) 50 mcg (2,000 unit) capsule 50 mcg PO DAILY 03/31/20 [History Last Taken Unknown] levothyroxine 88 mcg capsule 100 mcg PO DAILY cap 04/18/20 [History Last Taken Unknown] fluconazole 150 mg tablet 150 mg PO Q3D 0 Days #2 tablet 09/26/20 [Rx Last Taken Unknown] sumatriptan succinate 100 mg PO Q2H PRN 11/12/20 [History Last Taken Unknown] levonorgestrel-ethinyl estradiol 0.1 mg-20 mcg tablet See Rx Instructions .ROUTE .COMPLEX #84 tab 03/02/21 [Rx Last Taken Unknown] Allergy/AdvReac Type Severity Reaction Status Date / Time No Known Allergies Allergy Verified 03/26/21 17:08 Family History Father Diabetes Mother Diabetes Grandmother Thyroid disorder High cholesterol Cancer skin cancer Brother Seizures Grandfather High cholesterol Surgical History History of dilatation and curettage History of wisdom tooth extraction Social History (Updated 07/11/20 @ 13:[address] 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[employer] ROS ROS ED Constitutional Constitutional ED: Denies chills or fever(s) Eyes Eyes: Denies change in vision ENT ENT ED: Denies sore throat Cardiovascular Cardiovascular: Reports chest pain, palpitations and racing heartbeat Respiratory/Chest Respiratory/Chest: Denies cough or dyspnea Gastrointestinal Gastrointestinal: Denies abdominal pain, diarrhea, nausea or vomiting Genitourinary Genitourinary ED: Denies dysuria Musculoskeletal Musculoskeletal: Denies myalgias Integumentary Denies rash Neurologic Neurologic: Denies headache(s) Hematologic/Lymphatic Hematologic/Lymphatic: Denies easy bleeding or easy bruising EXAM Physical Exam Const Vital Signs: 03/26/21 17:09 03/26/21 17:16 03/26/21 19:00 Temperature 97.8 F Temperature Source Temporal Pulse Rate 86 82 Respiratory Rate 16 22 H Respiratory Effort Normal Non-Labored Respiratory Pattern Normal Blood Pressure 139/83 H 107/75 Blood Pressure Mean 101 85 Pulse Ox 100 98 Oxygen Delivery Method Room Air Room Air Positive well nourished and well developed General Appearance ED: well developed HEENT Reports moist mucous membranes Eyes PERRL and EOMs intact bilaterally Neck supple Resp normal respiratory effort and clear to auscultation bilaterally Cardio regular rate and regular rhythm GI normal to inspection, nondistended, normoactive bowel sounds, non-tender and non-distended Auscultation: normoactive bowel sounds Palpation: soft Extremity normal to inspection Extremity Narrative: No asymmetric edema no pitting edema negative Homans' sign bilaterally Neuro oriented x3 and CN's II-XII intact bilaterally Sensorium / Orientation: alert Motor Exam: strength 5/5 throughout Psych mental status grossly normal Skin no rashes or lesions noted MDM MDM MDM Narrative Medical decision making narrative: Patient presented to the ER in no acute dis tress with low risk factors for heart disease or pulmonary embolus. With report of chest pain as well as palpitations a basic work-up was obtained. Labs revealed no clinically significant finding. EKG revealed normal sinus rhythm. However while she was on the advanced practice registered nurse we did catch short runs lasting approximately 2 to 3 seconds of an apparent atrial tachycardia. At this time as she flips in and out of this dysrhythmia quickly and she has no laboratory derangements I do not feel she needs to be kept in the hospital for this. We will place her on a Holter monitor to further document her dysrhythmia and she can follow-up with cardiology for repeat evaluation. This plan of care was discussed with the patient and she is acceptable with this Lab Data Attestation: I reviewed the patient's lab results. Labs: Laboratory Results - last 24 hr 03/26/21 03/26/21 03/26/21 17:30 17:30 17:30 WBC 7.7 RBC 4.91 Hgb 14.5 Hct 42.4 MCV 86.4 MCH 29.5 MCHC 34.2 RDW Std Deviation 39.3 RDW Coeff of Kiersten 12.4 Plt Count 244 MPV 9.6 Immature Gran % (Auto) 0.300 Neut % (Auto) 57.6 Lymph % (Auto) 33.1 Potter % (Auto) 7.2 Eos % (Auto) 1.4 Baso % (Auto) 0.4 Absolute Neuts (auto) 4.4 Absolute Lymphs (auto) 2.54 Nucleated RBC % 0 D-Dimer Quant (PE/DVT) 0.46 Sodium 139 Potassium 3.5 Chloride 106 Carbon Dioxide 27.0 Anion Gap 6 BUN 9 Creatinine 0.91 Estim Creat Clear Calc 91.19 Est GFR (MDRD) Af Amer 93 Est GFR (MDRD) Non-Af 77 BUN/Creatinine Ratio 9.8 L Glucose 110 H Calcium 9.4 Magnesium 2.1 Troponin I High Sens 4 TSH 0.34 L Radiography Diagnostic Testing: Clinical Impression(s) from Imaging Studies Chest X-Ray 03/26/21 17:47 IMPRESSION: Normal x-ray examination of the chest. Electronically Signed: Jonathan Chun MD at 18:43 EDT , Service support , Discharge Plan Triage Chief Complaint: Chest Pain ED Provider: Amari Solomon Dx/Rx/DC Orders Clinical Impression: Atrial tachycardia, Heart palpitations Instructions: ED Palpitations Prescriptions: No Action levothyroxine 88 mcg capsule 88 mcg capsule 100 mcg PO DAILY RF: 0 cholecalciferol (vitamin D3) 50 mcg (2,000 unit) capsule 50 mcg PO DAILY RF: 0 sumatriptan succinate 100 mg Tablet 100 mg PO Q2H PRN (Reason: Migraine Headache) RF: 0 fluconazole [Diflucan] 150 mg tablet 150 mg PO Q3D 0 Days Qty: 2 RF: 0 levonorgestrel-ethinyl estrad [Lessina] 0.1-20 mg-mcg tablet See Rx Instructions .ROUTE .COMPLEX Qty: 84 RF: 0 Primary Care Provider: Nathaniel Liang Referrals: Nathaniel Liang DO [Primary Care Provider] - Damari Jerome MD [STAFF PHYSICIAN] - 5-7 Days Disposition Disposition: Home, Self Care
[2021-03-26 20:03] VITALS: BP 114/77
== END 2021-03-26 20:04 | disposition home or self-care (01) ==
PROVIDERS: Emergency Provider Emergency Medicine; PCP Student in an Organized Health Care Education/Training Program
DX: R07.9 Chest pain, unspecified (principal); I47.1 Supraventricular tachycardia; R00.2 Palpitations; E06.3 Autoimmune thyroiditis; E04.2 Nontoxic multinodular goiter; Z79.890 Hormone replacement therapy; Z79.3 Long term (current) use of hormonal contraceptives; Z79.899 Other long term (current) drug therapy; Z87.891 Personal history of nicotine dependence
CPT/HCPCS: 71046; 80048; 83735; 84443; 84484; 85025; 85379; 93005; 99284

== ENCOUNTER → 2021-03-26 19:56 | Outpatient (CLI) | payer OTHER, SELFPAY | PROVIDERS: PCP Student in an Organized Health Care Education/Training Program; Referring Provider Specialist; Visit Provider Emergency Medicine | DX: R00.2 Palpitations (principal); R07.9 Chest pain, unspecified | CPT/HCPCS: 93225; 93226 ==

== ENCOUNTER 2021-03-27 19:44 | Emergency (ER) | payer OTHER, SELFPAY ==
[2021-03-27 19:44] VITALS: BP 136/91; PULSE 80; RESP 19; TEMP 36.9; O2SAT 98; BMI 28.3
--- NOTE | 2021-03-27 19:52 | EKG12_ITS ---
Test Reason : CP Blood Pressure : / mmHG Vent. Rate : 078 BPM Atrial Rate : 078 BPM P-R Int : 180 ms QRS Dur : 086 ms QT Int : 370 ms P-R-T Axes : 062 028 027 degrees QTc Int : 421 ms Sinus rhythm with PAC's Otherwise normal ECG Confirmed by CARLITA COLON, RUDY ([id number]), production editor FAHAD DAVIDSON ([id number]) on 03/30/2021 12:48:43 PM Referred By: TAMARA Confirmed By:MEGAN ZAZUETA MD
--- NOTE | 2021-03-27 20:27 | EDS_ITS ---
HPI History of Present Illness Chief Complaint: Chest Pain Detail of Chief Complaint: Palpitations Informant: patient Onset/Context/Timing Onset: Days Activity at onset: gradual Timing: Intermittent Quality: Positive for Aching Location: Right Chest and Left Chest Current Severity: Mild Maximum Severity: Mild Worsened By: Nothing Relieved By: Nothing Associated Symptoms: Positive for Palpitations; Negative for Nausea, Vomiting, Diaphoresis, Dyspnea, Cough, Fever, Lightheadedness and Acid Reflux Narrative Narrative: 31-year-old female was seen in emergency department extensive cardiac work-up yesterday which was negative. She is currently on a 48-hour licensed funeral director and embalmer. And has a appointment to see cardiology in the future. She has a history of Lanette's thyroiditis. She is on medication for that. States that she has had palpitations and chest pain. No history of DVT or PE. No risk fac tors. Prior Similar Symptoms: Yes Recent Illness/Hospitalization: No CVD Risk Factors: Negative for Hypertension, Diabetes, Hypercholesterolemia and Smoking PE Risk Factors: Negative for Recent Travel/Surgery, Recent Immobilization, Prior DVT or PE, Cancer and OCP + Smoking + >/=35 TAD Risk Factors: Negative for Marfan's Syndrome and Hypertension [facility] Medical History Anemia Breast lump Lanette's disease Headache Hypothyroidism Migraine Multiple thyroid nodules Home Medications cholecalciferol (vitamin D3) 50 mcg (2,000 unit) capsule 50 mcg PO DAILY 03/31/20 [History Last Taken Unknown] levothyroxine 88 mcg capsule 100 mcg PO DAILY cap 04/18/20 [History Last Taken Unknown] fluconazole 150 mg tablet 150 mg PO Q3D 0 Days #2 tablet 09/26/20 [Rx Last Taken Unknown] sumatriptan succinate 100 mg PO Q2H PRN 11/12/20 [History Last Taken Unknown] levonorgestrel-ethinyl estradiol 0.1 mg-20 mcg tablet See Rx Instructions .ROUTE .COMPLEX #84 tab 03/02/21 [Rx Last Taken Unknown] Allergy/AdvReac Type Severity Reaction Status Date / Time No Known Allergies Allergy Verified 03/27/21 19:47 Family History Father Diabetes Mother Diabetes Grandmother Thyroid disorder High cholesterol Cancer skin cancer Brother Seizures Grandfather High cholesterol Surgical History History of dilatation and curettage History of wisdom tooth extraction Social History Smoking Status: Former smoker alcohol intake: never substance use type: does not use caffeine: Yes what type of physical activity do you participate in: walking frequency: 3-4 times per week seatbelt use: always do you feel safe at home: Yes 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 She has had palpitations and chest discomfort. Review of Systems ROS Unobtainable: Denies due to encephalopathy Constitutional Constitutional ED: Denies chills, fever(s) or subjective Eyes Eyes: Denies none or change in vision ENT ENT ED: Denies ear pain or sore throat Cardiovascular Cardiovascular: Reports as per HPI, chest pain and palpitations Respiratory/Chest Respiratory/Chest: Denies cough or dyspnea Gastrointestinal Gastrointestinal: Denies abdominal pain, diarrhea, nausea or vomiting Genitourinary Genitourinary ED: Denies dysuria or hematuria Musculoskeletal Musculoskeletal: Denies myalgias Integumentary Denies rash Neurologic Neurologic: Denies headache(s) Psychiatric Psychiatric: Denies depression Endocrine Endocrinology: Denies polyuria Hematologic/Lymphatic Hematologic/Lymphatic: Denies easy bruising Allergic/Immunologic Allergic/Immunologic ED: Denies urticaria EXAM Physical Exam Narrative Exam Narrative: Well-appearing 31-year-old female. Vital signs stable afebrile. Pulse ox 98% on room air. No hypoxia. Blood pressure 136/91. And temperature 95. Pulse is 80 and regular on the monitor. HEENT exam normal. Neck normal no thyromegaly. No lymphadenopathy. Lungs clear to auscultation bilaterally. Heart regular rate and rhythm rate about 80 no murmur. Abdomen soft nontender. Moving all 4 extremities. Calves nontender no edema no cords. Normal exam. Const Vital Signs: 03/27/21 19:44 Temperature 98.5 F Temperature Source Oral Pulse Rate 80 Respiratory Rate 19 H Blood Pressure 136/91 H Blood Pressure Mean 106 Pulse Ox 98 Oxygen Delivery Method Room Air Positive well nourished and well developed; Negative for obese, cachectic, contractures or unkempt General Appearance ED: well developed and NAD; Negative for unkempt, cachectic, contractures or pallor Nutritional Appearance: Negative for cachectic or obese HEENT Reports moist mucous membranes normocephalic and atraumatic Eyes PERRL and EOMs intact bilaterally Neck no lymphadenopathy, supple and no JVD General: Negative for tenderness Chest Wall inspection of chest normal and palpation of chest normal Resp normal respiratory effort and clear to auscultation bilaterally Effort and Inspection: respiratory distress Auscultation: Negative for rales, rhonchi or wheezes Cardio regular rate, regular rhythm, S1 normal heart sound, S2 normal heart sound and no murmurs Rate: Negative for tachycardic GI normal to inspection, nondistended, normoactive bowel sounds, soft to palpation, non-tender, non-distended and no masses Back/Spine no CVA tenderness Extremity normal to inspection General Extremety ED: Negative for edema or tenderness General Extremity: Negative for edema Neuro oriented x3 and CN's II-XII intact bilaterally Sensorium / Orientation: awake, alert, oriented to person, oriented to place and oriented to time Motor Exam: strength 5/5 throughout Psych mental status grossly normal Appearance: Negative for unkempt Mood & Affect: anxious and tearful; Negative for depressed Skin no rashes or lesions noted and no wounds General Skin Exam: Negative for jaundice or pallor MDM MDM MDM Narrative Medical decision making narrative: Reviewed the patient's work-up last night was unremarkable including x-ray, EKG and extensive labs. I went over that with both her and her significant other at bedside. She is a normal exam tonight and normal vital signs I explained her there is really no other work-up to do. She is currently on a licensed funeral director and embalmer which will get interrogated next week. As she is following up with cardiology and her primary care physician. Lab Data Lab results narrative: Reviewed the labs and work-up from last night which are unremarkable. Rhythm Strip Rhythm Strip: Sinus Rhythm Rate: 78 Ectopy: None EKG Initial EKG: Attestation: I personally reviewed and interpreted this EKG as follows: Interpretation: Sinus Rhythm and No Acute Injury Pattern Comments: Normal sinus rhythm rate of 78 no acute signs of [place] or ischemia. Unchanged from yesterday. Prior EKG tracings: available for review Prior: Unchanged Discharge Plan Triage Chief Complaint: Chest Pain ED Provider: Eduardo Horton Dx/Rx/DC Orders Clinical Impression: Heart palpitations Instructions: ED Palpitations Prescriptions: No Action levothyroxine 88 mcg capsule 88 mcg capsule 100 mcg PO DAILY RF: 0 cholecalciferol (vitamin D3) 50 mcg (2,000 unit) capsule 50 mcg PO DAILY RF: 0 sumatriptan succinate 100 mg Tablet 100 mg PO Q2H PRN (Reason: Migraine Headache) RF: 0 fluconazole [Diflucan] 150 mg tablet 150 mg PO Q3D 0 Days Qty: 2 RF: 0 levonorgestrel-ethinyl estrad [Lessina] 0.1-20 mg-mcg tablet See Rx Instructions .ROUTE .COMPLEX Qty: 84 RF: 0 Primary Care Provider: Nathaniel Liang Referrals: Nathaniel Liang DO [Primary Care Provider] - As soon as possible Activity Restrictions/Additional Instructions: Your exam tonight and complete work-up last night were unremarkable. Turning licensed funeral director and embalmer is indicated. They can interrogate that. Follow-up with your cardiology appointment and your primary care physician. At this time you have a normal exam and had a completely normal work-up yesterday. Disposition Disposition: Home, Self Care
[2021-03-27 20:39] VITALS: BP 124/84; PULSE 71; RESP 18; O2SAT 98
== END 2021-03-27 20:40 | disposition home or self-care (01) ==
LOC: ED 20:28
PROVIDERS: Emergency Provider Emergency Medicine; PCP Student in an Organized Health Care Education/Training Program
DX: R00.2 Palpitations (principal); R07.9 Chest pain, unspecified; E06.3 Autoimmune thyroiditis; E04.2 Nontoxic multinodular goiter; Z79.890 Hormone replacement therapy; Z79.3 Long term (current) use of hormonal contraceptives; Z79.899 Other long term (current) drug therapy; Z87.891 Personal history of nicotine dependence
CPT/HCPCS: 93005; 99283; A4216

== ENCOUNTER → 2021-06-17 10:37 | Outpatient (CLI) | payer OTHER, SELFPAY ==
--- NOTE | 2021-06-17 10:40 | ECHOD_ITS ---
Reason For Study: ARRHYTHMIA Procedure This was a 2D Doppler, Color Flow transthoracic echocardiogram. Exam performed in department. Left Ventricle Normal LV size. Left ventricular systolic function is normal. The estimated ejection fraction is 60 %. No regional wall motion abnormalities noted. Right Ventricle Normal RV size. Normal systolic function. Atria Normal left atrium. Normal right atrium. Mitral Valve Normal mitral valve. Tricuspid Valve Normal tricuspid valve. Aortic Valve Normal aortic valve. Trisinus/trileaflet aortic valve. Pulmonic Valve The pulmonic valve is not well visualized. Great Vessels Normal aortic root. The pulmonary artery is normal size. Normal inferior vena cava. Pericardium/Pleural No pericardial effusion. MMode/2D Measurements & Calculations LVIDd: 4.6 cm IVSd: 0.67 cm Ao root diam: 3.1 cm LVIDs: 3.1 cm LVPWd: 0.68 cm RVDd: 3.1 cm FS: 32.2 % LAV(MOD-bp): 44.0 ml LA A4 area: 17.6 cm2 LA dimension(2D): 3.0 cm LAV(MOD-bp) Indexed: 22.2 ml/m2 LAV(MOD-sp2): 40.7 ml LAV(MOD-sp4): 47.4 ml RA A4 area: 13.7 cm2 Doppler Measurements & Calculations MV E max alex: 83.9 cm/sec Lat Peak E' Alex: 15.1 cm/sec Med Peak E' Alex: 8.5 cm/sec MV A max alex: 64.1 cm/sec E/E' lat: 5.6 E/E' med: 9.9 MV E/A: 1.3 Ao V2 max: 134.0 cm/sec LV V1 max: 109.5 cm/sec Ao max P.2 mmHg LV V1 max P.8 mmHg ECHO/Echo Complete Interpretation Summary Normal LV size. Left ventricular systolic function is normal. The estimated ejection fraction is 60 %. Structurally normal valves. Ordering Physician: Les Lozano Referring Physician: JOSE A SHANNON Performed By: Jyoti Gutierrez, EDWAR, RVT
--- NOTE | 2021-06-17 13:11 | STRESSREP ---
Stress Test Report Exercise stress test. Stress protocol: Resting EKG demonstrates normal sinus rhythm with a rate of 81 bpm. Resting blood pressure is 128/96 mmHg. 31-year-old lady with a history of cardiac dysrhythmia. The patient exercised according to regular Danny protocol for total duration of 9 minutes. The maximum heart rate attained was 176 bpm which was 92% of max impact at heart rate the maximum workload was 10.1 metabolic equivalents. At rest there were no ST or T wave changes noted to suggest ischemia and at peak exercise upsloping ST changes were noted with did not meet the criteria for ischemia. No clinical angina was noted no arrhythmias were noted occasional premature ventricular complex during recovery was noted. The peak blood pressure was 162/98 mmHg. Rate-pressure product was 28,500. Conclusion: Exercise stress test with no EKG criteria for ischemia at a high workload. No arrhythmias noted.
== END ==
PROVIDERS: PCP Student in an Organized Health Care Education/Training Program; Referring Provider Internal Medicine Cardiovascular Disease; Visit Provider Internal Medicine Cardiovascular Disease
DX: I47.1 Supraventricular tachycardia (principal)
CPT/HCPCS: 93017; 93306

== ENCOUNTER 2021-07-27 07:42 | Outpatient (CLI) | payer OTHER, SELFPAY ==
--- NOTE | 2021-07-27 07:44 | US_ITS ---
STUDY: ULTRASOUND OF THE FEMALE PELVIS - COMPLETE REASON FOR EXAM: Female, 31 years old. Pelvic pain LMP: Unknown. TECHNIQUE: Transabdominal and Transvaginal TECHNICAL QUALITY: Adequate. COMPARISON: None. FINDINGS: The uterus is anteverted and is tilted to the right side of the pelvis. The uterus measures 9.4 cm x 5.4 cm x 5.7 cm. Normal uterine cervix. The endometrium measures 9 mm in thickness, and is hyperechoic. There is no demonstrated endometrial mass. There is no demonstrated myometrial mass. I.U.D. - The patient does not have an I.U.D. The right ovary is visualized. The right ovary measures 3.8 cm x 3.3 cm x 2.9 cm. There is a 3.1 cm x 2.7 cm x 2.6 cm right ovarian cyst. There is no visualized right adnexal mass or complex lesion. There is normal arterial and normal venous vascularity. The left ovary is visualized. The left ovary measures 2.7 cm x 2.4 cm x 1.6 cm. There is a 2.2 cm x 1.5 cm x 1.3 cm cyst. There is no visualized left adnexal mass or complex lesion. There is normal arterial and normal venous vascularity. There is no fluid in the cul-de-sac. The pre void volume of the bladder was 671 ml. US/Transvaginal Non- IMPRESSION: Bilateral ovarian cyst. Electronically Signed: Sachin Cook MD at 14:47 EST ,
--- NOTE | 2021-07-27 07:44 | US_ITS ---
STUDY: ULTRASOUND OF THE FEMALE PELVIS - COMPLETE REASON FOR EXAM: Female, 31 years old. Pelvic pain LMP: Unknown. TECHNIQUE: Transabdominal and Transvaginal TECHNICAL QUALITY: Adequate. COMPARISON: None. FINDINGS: The uterus is anteverted and is tilted to the right side of the pelvis. The uterus measures 9.4 cm x 5.4 cm x 5.7 cm. Normal uterine cervix. The endometrium measures 9 mm in thickness, and is hyperechoic. There is no demonstrated endometrial mass. There is no demonstrated myometrial mass. I.U.D. - The patient does not have an I.U.D. The right ovary is visualized. The right ovary measures 3.8 cm x 3.3 cm x 2.9 cm. There is a 3.1 cm x 2.7 cm x 2.6 cm right ovarian cyst. There is no visualized right adnexal mass or complex lesion. There is normal arterial and normal venous vascularity. The left ovary is visualized. The left ovary measures 2.7 cm x 2.4 cm x 1.6 cm. There is a 2.2 cm x 1.5 cm x 1.3 cm cyst. There is no visualized left adnexal mass or complex lesion. There is normal arterial and normal venous vascularity. There is no fluid in the cul-de-sac. The pre void volume of the bladder was 671 ml. US/Pelvic (Non ) IMPRESSION: Bilateral ovarian cyst. Electronically Signed: Sachin Cook MD at 14:47 EST ,
== END 2021-07-27 23:59 | disposition home or self-care (01) ==
LOC: US 07:42
PROVIDERS: PCP Student in an Organized Health Care Education/Training Program; Referring Provider Obstetrics & Gynecology; Visit Provider Obstetrics & Gynecology
DX: R10.2 Pelvic and perineal pain (principal)
CPT/HCPCS: 76830; 76856; 93976

== ENCOUNTER 2021-08-25 05:17 | Day surgery (SDC) | payer OTHER, SELFPAY ==
--- NOTE | 2021-08-24 11:38 | PCM.HP.BLA ---
History and Physical Date of Admission: 08/25/21 MR#:[id number]:[id number]: JUAN DURBIN [facility] #:[id number]:1990 Provider:Dr. 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 Is patient in pain?: No Allergies No Known Allergies Allergy (Verified 08/04/21 13:37) Medications cholecalciferol (vitamin D3) 50 mcg (2,000 unit) capsule 50 mcg PO DAILY 03/31/20 [History Confirmed 08/04/21] levothyroxine 100 mcg capsule 100 mcg PO DAILY 06/01/21 [History Confirmed 08/04/21] sumatriptan succinate 100 mg tablet 100 mg PO ONCE PRN tab 06/03/21 [History Confirmed 08/04/21] norethindrone (contraceptive) 0.35 mg tablet 0.35 mg PO DAILY #84 tab 06/15/21 [Rx Confirmed 08/04/21] Post menopausal: No Patient : No : No PFSH Medical History Anemia Breast lump Lanette's disease Headache Hypothyroidism Migraine Multiple thyroid nodules Paroxysmal atrial tachycardia Surgical History History of dilatation and curettage History of wisdom tooth extraction Family History Father Diabetes Mother Diabetes Grandmother Thyroid disorder High cholesterol Cancer skin cancer Brother Seizures Grandfather High cholesterol Social History Smoking Status: Former smoker alcohol intake: never substance use type: does not use caffeine: Yes what type of physical activity do you participate in: walking, aerobics and weight training frequency: 5-6 times per week seatbelt use: always do you feel safe at home: Yes 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 She had an ultrasound that showed a 9 cm retroverted (and to the right) bilateral ovarian cysts (3 cm on right, 2 cm on left) She states that her had a vasectomy and she is not interested in medical therapy as estrogen exacerbates her SVT. Micronor is not helping with the pain or the bleeding. She is requesting hysterectomy for definitive therapy. Pregancy History 5 Elective abortions Hx Para 4 Spontaneous abortions Hx # Term Pregnancies Ectopic pregnancies Hx # Pregnancies Multiple births # of living children 4 Past Pregnancies Del. Date Name GA/Weeks Outcome Route Bth Weight Infant Gen Labor Lgth Anesthesia Del Locatn Provider FOB Unknown 2011 Braelynn live - full term 40 Female [place] Unknown 2011 Landra 39 live - full term Female [place] Unknown 2016 Sayda 38 live - full term Female [place] 09/16/18 Jane 36 live - Male epidural [facility] Delivery Date: No notes to display Delivery Date: No notes to display Delivery Date: Breech Vera Gregorio Delivery Date: 09/16/18 Severe preeclampsia Javier,Laura ROS Const ROS Unobtainable: All systems reviewed & are unremarkable except as noted in H Resp Resp: Reports system reviewed and no additional complaints, except as documented; Denies cough GI GI: Reports as per HPI Psych Psych: Reports system reviewed and no additional complaints, except as documented Exam Const General: cooperative, healthy appearing, comfortable and no acute distress Resp Effort & Inspection: normal respiratory effort Skin General: no rashes or lesions noted Psych Appearance: grossly normal Speech and Movement: speech and movement normal Coding Level of Care Code Off vis,est,level 4 Diagnoses Pelvic pain R10.2 Paroxysmal atrial tachycardia I47.1 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 Haily Ojeda, DO: I spent 15 minutes in this visit, with more than 50% of the time devoted to patient counseling. The risks, benefits, and alternative therapies were discussed with the patient and she has decided that she wants a hysterectomy. Plan for LAVH, bilateral salpingectomy, cystoscopy. (2) Paroxysmal atrial tachycardia: Status: Chronic Comment: per holter 03/2021 (3) Lanette's disease: Status: Chronic UPDATE- I have seen the patient and performed any clinically relevant updates to the history and physical exam. Haily Ojeda DO
[2021-08-24 13:34] LABS: Absolute Lymphocyte Count 2.27 X10^3/uL (0.83-4.51); Absolute Neutrophil Count 4.1 X10^3/uL (2.0-7.7); Basophil# 0.04 X10^3/uL; Basophil% 0.6 % (0-1); Eosinophils% 1.4 % (0-5); Hematocrit 40.2 % (37-47); Hemoglobin 13.9 g/dL (12.0-15.0); Lymphocyte # 2.27 X10^3/ul (0.83-4.51); Mean Corp Hgb Conc 34.6 g/dL (32-36); Mean Corpuscular Volume 86.8 fL (81-99); Mean Platelet Vol. 9.7 fl (6.2-12.0); Monocyte# 0.56 X10^3/uL; Monocyte% 7.9 % (0-10); NRBC Flagged by Analyzer 0 % (0-5); Neutrophil # 4.09 X10^3/uL (2.7-7.7); Neutrophil % 57.7 % (47-70); Platelet Count 212 K/mm3 (150-450); RBC Distribution Width CV 12.1 % (11.6-14.6); RBC Distribution Width SD 38.7 fl (35.1-43.9); Red Blood Count 4.63 M/mm3 (4.2-5.4); White Blood Count 7.1 K/mm3 (4.4-11.0)
[2021-08-24 14:17] LABS: Magnesium 2.1 mg/dL (1.6-2.6); Thyroid Stim Hormone (TSH) 1.01 uIU/mL (0.358-3.74)
[2021-08-25] VITALS (18 sets, daily range): BP systolic 81–120; BP diastolic 57–86; PULSE 55–98; RESP 16–18; TEMP 36.4–37.2; O2SAT 94–100; BMI 30.3
--- NOTE | 2021-08-25 | HYST_PTH ---
PATIENT: JUAN DURBIN LOC: [facility] U#:[id number] AGE/SX: 31/F ROOM: RE08/25/[address]: Dr. Haily Ojeda DO : 1990 BED: DIS: 08/26/2021 SPEC #: [id number] RECD: 08/25/21 10:17 STATUS: YOLA GREGOR #: [id number] CARLOS: 08/25/21 00:[address]: Haily Ojeda DEPT: SURGICAL PATHOLOGY RECD BY: Vitaly Schofield ENTERED: 08/25/21 10:17 SP TYPE: HYSTERECT OTHR DR: Dr. Nathaniel Liang DO Tissues: Uterus, NOS Procedures: Surgery Specimen Level V HEADER OPERATION: ERAS, hysterectomy, LAVH, salpingectomy, cysto PRE-OP DIAGNOSIS: Pelvic pain TISSUE SUBMITTED: Uterus, cervix, bilateral fallopian tubes MICROSCOPIC DIAGNOSIS Uterus, hysterectomy: Cervix ? focal squamous metaplasia and mild chronic inflammation. Endometrium ? proliferative endometrium with recent mucosal hemorrhage. Myometrium ? focal adenomyosis. Right fallopian tube - No pathologic change. Left fallopian tube - No pathologic change. AM:narciso 08/26/2021 MICROSCOPIC DESCRIPTION Slides are reviewed. GROSS DESCRIPTION Received in fixative is one container labeled with the patient's name and designated uterus, cervix, bilateral fallopian tubes. The specimen consists of a hysterectomy specimen consisting of uterus with cervix and attached bilateral fallopian tubes. The uterus with cervix weighs 103 gm and measures 9.5 x 6 x 4 cm. The serosal surface is garza, glistening. The ectocervical mucosa is unremarkable. The external os is oval and patulous in contour. The endocervical canal measures 3 cm in length and the endocervical mucosa is unremarkable. The triangular endometrial cavity measures 5 cm in length and up to 2.5 cm in width. The endometrium is congested without any mass lesion and measures 0.1 cm in thickness. Sections of the uterine wall do not reveal any mass lesion and measures up to 2.5 cm in thickness. The right fallopian tube measures 7 cm in length and 1 cm in diameter. The fimbrial end is identified. Sections reveal unremarkable cut surfaces. The left fallopian tube is similar appearance to right and measures 7 cm in length and 0.8 cm in diameter. Transfer And Line Up Worker sections are submitted in eight cassettes as follows: 1 - anterior cervix, 2 - posterior cervix, 3 & 4 - anterior uterine wall, 5 & 6 - posterior uterine wall, 7 - right fallopian tube, 8 - left fallopian tube. / HYUN:narciso 08/25/2021 TC:5 CPT: 48120
[2021-08-25 05:56] LABS: Bedside Glucose 100 mg/dL (74-106)
[2021-08-25 06:04] LABS: Internal QC Validated? YES +Cl - CLEAR BKGD; Pregnancy, Urine Negative Negative
[2021-08-25] MEDS: Lactated Ringers 1,000 ML 40 ML IV ×2 (06:05→08:46)
[2021-08-25] MEDS: Acetaminophen 500 MG Tablet 1000 MG PO ×3 (06:06→21:59)
[2021-08-25] MEDS: Gabapentin 600 MG Tablet PO (06:07)
[2021-08-25] MEDS: Celecoxib 200 MG Capsule 400 MG PO (06:07)
[2021-08-25] MEDS: dexAMETHasone 10 MG/ML Vial 8 MG IV (06:11)
[2021-08-25] MEDS: Scopolamine 1mg/72hr Patch 1 PATCH TD (06:15)
[2021-08-25] MEDS: Enoxaparin 40 MG/0.4 ML Syringe SC (06:17)
--- NOTE | 2021-08-25 07:15 | PCM.DC ---
Discharge Instructions Diet Discharge Diet: No restrictions Activity May resume sexual activity in: 6 weeks Weight Bearing Status: Full weight bearing Dressing / Incision Call your doctor if your incision/area has: Continuous Slow Oozing, Sudden Increased Bleeding, Increased Pain/ Swelling, Increased Redness and Foul Smelling Discharge Call your doctor if you observe: Fever of 101 or Higher, Using more than 1 pad per hour, Shortness of breath, Chest pain and Uncontrolled pain Suture Line Care: Avoid Pulling/Pushing and Avoid Pinching/Bending Remove Dressing in: 1 week (if present) Cleanse incision/area with: Soap & Water and Keep Dressing Clean & Dry Follow Up Care Please Follow Up With: Haily Ojeda DO When: Call to make an appointment with your doctor for a postop visit in 2 and 6 weeks Test Results: Test results from this visit will be discussed in further detail at your follow-up appointment, if applicable. Discharge Plan Admission Primary Reason for Your Visit: hysterectomy Attending Provider: Haily Ojeda Primary Care Provider: Nathaniel Liang Discharge Orders/Prescriptions Prescriptions: New ibuprofen 800 mg tablet 800 mg PO Q8H PRN (Reason: pain) 7 Days Qty: 30 RF: 0 oxycodone-acetaminophen [Percocet] 5-325 mg tablet 1 tab PO Q4H PRN (Reason: pain) 7 Days Qty: 30 RF: 0 docusate sodium [Colace] 100 mg capsule 100 mg PO DAILY 14 Days Qty: 14 RF: 0 promethazine 12.5 mg tablet 12.5 mg PO TID PRN (Reason: nausea and vomiting) Qty: 30 RF: 0 Continued cholecalciferol (vitamin D3) 50 mcg (2,000 unit) capsule 50 mcg PO DAILY RF: 0 levothyroxine 100 mcg capsule 100 mcg PO DAILY RF: 0 sumatriptan succinate 100 mg tablet 100 mg PO ONCE PRN (Reason: migraine headache) RF: 0 Other Ambulatory Orders: ,Urine (Routine) Timeframe: [id number] Facility: [facility] - Location: Laboratory Ordered By: Dr. [place] Clark Referrals / Follow Up: Nathaniel Liang DO [Primary Care Provider] - Disposition Disposition (needs filled in before D/C Order can be placed): Home, Self Care
[2021-08-25] MEDS: Cefazolin 2 GM in 0.9% Normal Saline 100 ML IV (07:22)
[2021-08-25] MEDS: Ondansetron 4 MG/2 ML Vial IV (09:29)
[2021-08-25] MEDS: Bupivacaine 0.25% 30 ML Vial (09:36)
[2021-08-25] MEDS: Vasopressin 20 UNITS/ML Vial (09:36)
--- NOTE | 2021-08-25 09:45 | PCM.OPRPT ---
Problems Associated Problem List Diagnoses (1) Pelvic pain: (2) Menorrhagia: Report of Operation Date of Procedure: 08/25/21 Pre-Operative Diagnosis: pelvic pain, ,menorrhagia, does not desire future fertility Post-Operative Diagnosis: pelvic pain, ,menorrhagia, does not desire future fertility Surgery/Procedure Performed:: Laparoscopically assisted vaginal hysterectomy, bilateral salpingectomy, cystoscopy Description of Surgical Findings:: Patient received preoperative antibiotics and SCDs were on preoperatively. Patient was taken back to the operating room and placed in the dorsal lithotomy position. General anesthesia was induced and patient was prepped and draped in normal sterile fashion. Uterine manipulator was placed inside the uterus and Hernández catheter placed in the bladder. An intraumbilical incision was made after injecting with quarter percent Marcaine and a 5 mm port site was inserted into the abdomen under direct visualization using the 5 mm laparoscope. The abdomen was insufflated with CO2 gas. Right and left lower quadrants were transilluminated and injected with quarter percent Marcaine and 5 mm ports placed under direct visualization. Pelvis was well visualized see operative findings for additional information. Bilateral fallopian tubes were identified and transected with the LigaSure device across the mesosalpinx to the level of the utero-ovarian ligament which was also transected with the LigaSure device. The broad ligament was opened up by transecting the round ligament bilaterally and skeletonizing the uterine vessels bilaterally and creating a bladder flap using the LigaSure device. The uterine arteries were transected bilaterally with good visualization of the bladder and the ureters were seen to be inferior lateral to the operative area. Attention was then paid to the vaginal portion of the procedure and the cervix was grasped with Ag clamps and circumferentially injected with dilute vasopressin. A circumferential incision was made with the scalpel and the vaginal mucosa was mobilized off posteriorly and the cul-de-sac entered into sharply and a longneck speculum placed. The anterior cul-de-sac was then identified and entered into sharply. The uterosacral ligaments were clamped cut and suture ligated with 0 Monocryl bilaterally followed by the cardinal ligaments which were clamped cut and suture ligated bilaterally with 0 Monocryl. The uterus serially descended and was removed without difficulty. Pelvic sidewall pedicles were checked and noted to have excellent hemostasis. The vaginal mucosa was reapproximated incorporating the posterior peritoneum. This was reapproximated using 0 Vicryl [id number] sutures. Excellent hemostasis was noted. The cystoscopy was then performed and bilateral ureteral strong spray was noted and the bladder was noted to have no abnormality or lesions seen. Hernández catheter was replaced and then attention paid to the abdominal portion of the procedure again. The pelvis and cul-de-sac was well visualized there was noted to be a mild amount of oozing at the peritoneal edge at the cuff. Two figure of 8 sutures were passed vaginally while also visualizing throug the laparoscope. After gloves were changed and no significant active bleeding noted but some raw areas were seen on the peritoneum and therefore flow seal and interseed were placed on the cuff Pressure was taken down and the areas visualized and noted of excellent hemostasis. All ports were removed under direct visualization without complication and the abdomen was desufflated of air. The instruments removed from the abdomen and the vagina vaginal sweep was negative. Port sites on the abdomen were closed with 4-0 Monocryl interrupted sutures and Steri's and windows were applied. She was awoken and taken recovery in stable condition. Surgeon: Haily Ojeda communication studies professor: Zandra Vaughn Type of Anesthesia: General Anesthesiologist: [place] Clark Specimen's removed: uterus, cervix, bilateral fallopian tubes Drains: none Estimated Blood Loss (mL): 100cc Fluids Replaced: 1 liter Grafts/Implants Used: none Complications none Admit VTE Documentation VTE Present on Admission: Yes VTE Mechan Device Prophylaxis: SCD's VTE Pharm Prophylaxis ordered?: No Reason prophylaxis not ordered:: Procedure Not Indicated Multi Select Codes Urinary/Genital Urinary/Genital CPT Codes: 53079 LAVH <250gr uterus
[2021-08-25] MEDS: Lactated Ringers 1,000 ML 100 ML IV ×2 (11:55→22:01)
[2021-08-25] MEDS: Ketorolac 30 MG/ML Syringe IV ×2 (12:25→18:38)
[2021-08-25] MEDS: oxyCODONE 5 MG Tablet PO (16:32)
[2021-08-25] MEDS: 0.9% Saline Lock 10 ML Syringe IV (18:41)
[2021-08-25] MEDS: Docusate Sodium 100 MG Capsule PO (21:59)
[2021-08-26] MEDS: Ketorolac 30 MG/ML Syringe IV ×2 (00:20→06:26)
[2021-08-26 01:53] VITALS: BP 102/59; PULSE 95; RESP 16; TEMP 37.2; O2SAT 96
[2021-08-26] MEDS: oxyCODONE 5 MG Tablet PO (02:39)
[2021-08-26] MEDS: Acetaminophen 500 MG Tablet 1000 MG PO ×2 (04:06→10:11)
[2021-08-26 05:54] VITALS: BP 108/77; PULSE 61; RESP 16; TEMP 37.1; O2SAT 98
[2021-08-26 05:55] LABS: Hematocrit 35.2 % (37-47); Hemoglobin 12.4 g/dL (12.0-15.0); Mean Corp Hgb Conc 35.2 g/dL (32-36); Mean Corpuscular Hgb 31.2 pg (27.0-32.0); Mean Corpuscular Volume 88.7 fL (81-99); Mean Platelet Vol. 9.9 fl (6.2-12.0); Platelet Count 176 K/mm3 (150-450); RBC Distribution Width SD 38.9 fl (35.1-43.9); Red Blood Count 3.97 M/mm3 (4.2-5.4); White Blood Count 9.9 K/mm3 (4.4-11.0)
[2021-08-26] MEDS: Levothyroxine 100 MCG Tablet PO (06:25)
[2021-08-26 07:34] VITALS: BP 114/76; PULSE 63; RESP 18; TEMP 36.7; O2SAT 97
[2021-08-26 07:42] VITALS: O2SAT 96
[2021-08-26] MEDS: Lactated Ringers 1,000 ML 100 ML IV (07:53)
--- NOTE | 2021-08-26 08:49 | PCM.PN.OB ---
Subjective Subjective Patient doing well without complaints. Tolerating PO. Feeding well over all and wants to go home. Denies chest pain, shortness of breath, calf pain/swelling, fevers, chills, lightheadedness. Objective Data Objective Data Vital Signs: Vital Signs Temp Pulse Resp BP Pulse Ox 98.1 F 63 18 114/76 96 08/26/21 07:34 08/26/21 07:34 08/26/21 07:34 08/26/21 07:34 08/26/21 07:42 Oxygen Flow Rate (L/min) 4 Oxygen Delivery Method Room Air Weight: 199 lb 6.4 oz Body Mass Index (BMI) 30.3 Intake & Output: Intake and Output for Last 24 Hours 08/24/21 08/25/21 08/26/21 23:59 23:59 23:59 Intake Total 2322.17 / 2322.17 986.67 / 986.67 Output Total 3550 / 4850 2100 / 2100 Balance -1227.83 / -2527.83 -1113.33 / -1113.33 Lab / Micro Data Result Diagrams: 08/26/21 05:21 Labs: Laboratory Results - last 24 hr 08/26/21 05:21: WBC 9.9, RBC 3.97 L, Hgb 12.4, Hct 35.2 L, MCV 88.7, MCH 31.2, MCHC 35.2, RDW Std Deviation 38.9, RDW Coeff of Kiersten 12.0, Plt Count 176, MPV 9.9 Micro: Microbiology 08/24/21 12:00 Interface Orders SARS-CoV-2 Antigen (Rapid) - Final ROS Constitutional Constitutional: Denies chills, fatigue, fever(s), poor appetite or weakness Eyes Eyes: Denies blurry vision, change in vision, seeing flashes or spots in vision ENT HEENT: Denies dizziness, headache(s), loss taste/smell or sore throat Cardiovascular Cardiovascular: Denies chest pain, dizziness, dyspnea, irregular heart rhythm, palpitations or rapid heart rate Respiratory/Chest Respiratory/Chest: Denies chest tightness, cough, dyspnea or breast pain Gastrointestinal Gastrointestinal: Denies abdominal pain, constipation or vomiting Genitourinary Genitourinary: Denies dysuria or flank pain Musculoskeletal Musculoskeletal: Denies difficulty walking, joint pain, limited range of motion or numbness Neurologic Neurologic: Denies abnormal movements, abnormal speech, dizziness, numbness, seizure-like activity or syncope Psychiatric Psychiatric: Denies anxiety, behavioral changes, change in appetite, confusion, depression or suicidal thoughts Physical Exam Const alert, oriented x3 and no apparent distress General Appearance: cooperative and comfortable Resp normal respiratory effort Cardio regular rate GI normal to inspection, nondistended, normoactive bowel sounds Palpation: soft Back/Spine no CVA tenderness and thoraco-lumbar ROM normal Extremity normal to inspection, no clubbing, cyanosis or edema, no calf tenderness and no pedal edema Psych mental status grossly normal, thought process normal, cooperative, affect normal, speech normal, activity/motor behavior normal, denies homicidal ideation and denies suicidal ideation Assessment & Plan (1) H/O hysterectomy for benign disease: (2) Menorrhagia: (3) Hypothyroidism (acquired): (4) Rapid palpitations: (5) Pelvic pain: (6) Paroxysmal atrial tachycardia: COMMENT: per holter 03/2021 (7) Lanette's disease: PLAN: post op LAVH day #1 - pt stayed over night for pain management -vitals and hg stable -dc to home home today.
[2021-08-26] MEDS: Docusate Sodium 100 MG Capsule PO (10:11)
== END 2021-08-26 12:32 | disposition home or self-care (01) ==
LOC: SDC 05:18 → AC 05:18 → MS3 08-28 13:35
PROVIDERS: Anesthesiology; PCP Student in an Organized Health Care Education/Training Program; Referring Provider Obstetrics & Gynecology; Visit Provider Obstetrics & Gynecology
PROC: 0UT9FZZ Resection of Uterus, Via Natural or Artificial Opening With Percutaneous Endoscopic Assistance (ICD-10-PCS; CPT 58552; principal; 2021-08-25 07:05)
DX: N92.0 Excessive and frequent menstruation with regular cycle (principal); I47.1 Supraventricular tachycardia; N83.202 Unspecified ovarian cyst, left side; N83.201 Unspecified ovarian cyst, right side; Z20.822 Contact with and (suspected) exposure to COVID-19; E06.3 Autoimmune thyroiditis; I10 Essential (primary) hypertension; E03.9 Hypothyroidism, unspecified; R10.2 Pelvic and perineal pain; J45.909 Unspecified asthma, uncomplicated; Z79.890 Hormone replacement therapy; Z79.899 Other long term (current) drug therapy; Z87.891 Personal history of nicotine dependence
CPT/HCPCS: 58552; 00944; 36415; 81025; 82962; 83735; 84443; 85025; 85027; 86850; 86900; 86901; 87426; 88307; 94762; 99251; C9803; J7120; A4216; G0463; J2405

== ENCOUNTER 2021-09-08 16:55 | Outpatient (CLI) | payer OTHER, SELFPAY | END 2021-09-08 23:59 | disposition home or self-care (01) | LOC: LAB 16:56 | PROVIDERS: PCP Student in an Organized Health Care Education/Training Program; Referring Provider Obstetrics & Gynecology; Visit Provider Obstetrics & Gynecology | DX: R30.0 Dysuria (principal) | CPT/HCPCS: 87086; 87088 ==